=== PATIENT | male | born 1955 | race Caucasian/White ===

== ENCOUNTER 2019-12-23 13:52 | Inpatient (IN) | payer MEDICAID ==
[~2019-12-23] VITALS: Ht 172.7 cm; Wt 77.1 kg
[2019-12-23] MEDS ORDERED: PROVENTIL/2.5 MG/3 M (13:57)
[2019-12-23] MEDS ORDERED: LISINOPRIL20 MG PO (13:57)
[2019-12-23 14:18] LABS: BASOPHILS 0.3 % (0-2); EOSINOPHILS 4.2 % (0-7); HEMATOCRIT 43.1 % (42.0-54.0); IMMATURE GRANULOCYTES 0.1 % (0-5); MCH 31.7 pg (26.0-34.0); MCHC 32.5 g/dL (31.0-37.0); MCV 97.5 fL (80.0-100.0); MONOCYTES 10.1 % (2-11); NEUTROPHILS 51.3 % (40-80); PLATELET COUNT 206 10x3/uL (130-400); RBC 4.42 10x6/uL (4.20-6.10); RDW 12.1 % (11.5-14.5); WBC 7.9 10x3/uL (4.8-10.8)
[2019-12-23 14:31] LABS: CALC OSMOLALITY 283 mosm/kg (275-300); CALCIUM 8.8 mg/dL (8.5-10.1); CARBON DIOXIDE 35.6 mmol/L (21.0-32.0); CHLORIDE - SERUM 104 mmol/L (98-107); GLUCOSE 87 mg/dL (74-106); POTASSIUM - SERUM 3.6 mmol/L (3.5-5.1); SODIUM 142 mmol/L (136-145); UREA NITROGEN 18 mg/dL (7-18); eGFR NON AFRICAN AMERICAN 80 mL/min (90-120)
[2019-12-23 14:45] LABS: ALBUMIN 3.8 g/dL (3.4-5.0); ALKALINE PHOSPHATASE 85 U/L (30-120); ALT (SGPT) 40 U/L (10-68); BILIRUBIN - TOTAL 0.38 mg/dL (0.2-1.3); CKMB 1.5 U/L (0.0-3.6); CREATINE KINASE 93 UL (21-232); PRO BNP 317 pg/mL (0-125); PROTEIN - SERUM 7.7 g/dL (6.4-8.2)
[2019-12-23 14:59] LABS: TROPONIN-I < 0.017 ng/mL (0.000-0.060)
[2019-12-23 15:19] VITALS: BP 163/82
[2019-12-23 16:20] VITALS: BP 150/69
[2019-12-23 17:33] VITALS: BP 140/61
[2019-12-23 18:06] LABS: APTT 32.3 SECONDS (22.8-39.4); INR 0.95 (0.85-1.17); PROTIME 12.7 SECONDS (11.6-15.0)
[2019-12-23 18:07] LABS: D-DIMER-QUANTITATIVE < 0.27 ug/mLFEU (0.20-0.54)
[2019-12-23 18:21] VITALS: BP 145/68
[2019-12-23 20:00] VITALS: BP 142/81
[2019-12-23 21:05] VITALS: BP 142/81; BMI 25.9
[2019-12-23 21:42] LABS: C-REACTIVE PROTEIN 1.6 mg/dL (0.0-0.9)
[2019-12-24] VITALS: BP 143/77
[2019-12-24 04:00] VITALS: BP 130/73
[2019-12-24 04:44] LABS: BASOPHILS 0 % (0-2); EOSINOPHILS 0 % (0-7); HEMOGLOBIN 12.9 g/dL (13.5-17.5); LYMPHOCYTES 10.7 % (15-50); MCH 30.9 pg (26.0-34.0); MCHC 32.3 g/dL (31.0-37.0); MCV 95.9 fL (80.0-100.0); MEAN PLATELET VOLUME 9.1 fL (7.4-10.4); MONOCYTES 2.3 % (2-11); PLATELET COUNT 204 10x3/uL (130-400); RBC 4.17 10x6/uL (4.20-6.10); RDW 12.2 % (11.5-14.5)
[2019-12-24 04:53] LABS: WBC 5.2 10x3/uL (4.8-10.8)
[2019-12-24] MEDS ORDERED: PROAIR HFA8.5 G1 INH (05:04)
[2019-12-24] MEDS ORDERED: SPIRIVA18 MCG INH (05:04)
[2019-12-24 05:09] LABS: ALBUMIN 3.2 g/dL (3.4-5.0); ALKALINE PHOSPHATASE 73 U/L (30-120); ALT (SGPT) 33 U/L (10-68); BILIRUBIN - TOTAL 0.31 mg/dL (0.2-1.3); CALCIUM 8.3 mg/dL (8.5-10.1); CARBON DIOXIDE 30.1 mmol/L (21.0-32.0); CHLORIDE - SERUM 103 mmol/L (98-107); MAGNESIUM - SERUM 2.1 mg/dL (1.8-2.4); PROTEIN - SERUM 6.9 g/dL (6.4-8.2); SODIUM 138 mmol/L (136-145); UREA NITROGEN 17 mg/dL (7-18); eGFR NON AFRICAN AMERICAN 80 mL/min (90-120)
[2019-12-24 05:19] LABS: CALC OSMOLALITY 282 mosm/kg (275-300); GLUCOSE 180 mg/dL (74-106); POTASSIUM - SERUM 4.2 mmol/L (3.5-5.1)
[2019-12-24 08:55] VITALS: BP 141/78
[2019-12-24 12:01] VITALS: Ht 172.7 cm; Wt 77.1 kg
[2019-12-24 16:55] VITALS: BP 139/61
--- NOTE | 2019-12-24 18:20 | MORECARE ---
CASE MANAGEMENT DISCHARGE SUMMARY PATIENT: JENNIFER TREJO UNIT: [id number] ADM DATE: 12/23/19 AGE: 64 : 57 SEX: M ROOM/BED: D.2207 AUTHOR: ARELY HAMMOND PHYSICIAN: REFERRING PHYSICIAN: MILKA MANCILLA MD DATE OF SERVICE: 12/24/19 Discharge Plan Patient Name: JENNIFER TREJO [facility] [facility] 1955 Planned Disposition: Home Anticipated Discharge Date: Discharge Date: Expected LOS: Initial Reviewer: [email or web address] Initial Review Date: 12/23/2019 Generated: 12/24/19 7:19 pm DCPIA - Discharge Planning Initial Assessment Updated by [email or web address]: Kayli Barnes on 12/24/19 6:17 pm * Is the patient Alert and Oriented? Yes * How many steps to enter\exit or inside your home? * PCP NO PCP * [facility] * Preadmission Environment Home Alone * ADLs Independent * Equipment Nebulizer * List name and contact numbers for known caregivers / representatives who currently or will assist patient after discharge: MATHEW DEAN - [facility] - [phone] * Verbal permission to speak to the caregivers and representatives has been obtained from the patient. Yes * Community resources currently utilized None * Additional services required to return to the preadmission environment? No * Can the patient safely return to the preadmission environment? Yes * Has this patient been hospitalized within the prior 30 days at any hospital? No Patient Name: JENNIFER TREJO Page [id number] at 1820 All edits/amendments must be made on the electronic document DICTATION DATE: 12/24/191818 SANDBLASTER STONE: MARVIN 12/24/191818 RPT#: [id number] SD DATE: STATUS: ADM IN [facility] [address] [place] [address] END OF REPORT
--- NOTE | 2019-12-24 18:27 | MORECARE ---
CASE MANAGEMENT DISCHARGE SUMMARY PATIENT: JENNIFER TREJO UNIT: [id number] ADM DATE: 12/23/19 AGE: 64 : 57 SEX: M ROOM/BED: D.2207 AUTHOR: STEPHANY,DOC PHYSICIAN: REFERRING PHYSICIAN: MILKA MANCILLA MD DATE OF SERVICE: 12/24/19 Discharge Plan Patient Name: JENNIFER TREJO Facility[facility]:[place] : 1955 Planned Disposition: Home Anticipated Discharge Date: Discharge Date: Expected LOS: Initial Reviewer: [email or web address] Initial Review Date: 12/23/2019 Generated: 12/24/19 7:26 pm Comments DCP- Discharge Planning Updated by [id number]: Kayli Barnes on 12/24/19 5:[address] Patient Name: JENNIFER TREJO Admission Status: Elective Accout number: [id number] Admission Date: 12-23-2019 : 1955 Admission Diagnosis: Attending: VANIA Current LOS: 1 Anticipated DC Date: Planned Disposition: Home Primary Insurance: MEDICAID [place] Discharge Planning Comments: CM met with patient to complete initial dc planning assessment. CM educated patient on the CM role and verbal consent given by patient to complete assessment. Patient lives at home alone. At discharge patient plans to return home and feels this is a safe discharge. CM discussed availability of home health, rehab services, and medical equipment. Patient states he does have a nebulizer at home but no other medical equipment. Patient denied known discharge needs at this time. CM will continue to follow and will assist as needed with dc plans/needs. Food Service: Kayli Barnes DCPIA - Discharge Planning Initial Assessment Updated by [email or web address]: Kayli Barnes on 12/24/19 6:17 pm * Is the patient Alert and Oriented? Yes * How many steps to enter\exit or inside your home? * PCP NO PCP * [facility] * Preadmission Environment Home Alone * ADLs Independent * Equipment Nebulizer * List name and contact numbers for known caregivers / representatives who currently or will assist patient after discharge: MATHEW DEAN - [facility] - [phone] * Verbal permission to speak to the caregivers and representatives has been obtained from the patient. Yes * Community resources currently utilized None * Additional services required to return to the preadmission environment? No * Can the patient safely return to the preadmission environment? Yes * Has this patient been hospitalized within the prior 30 days at any hospital? No Last DP export: 12/24/19 5:20 p Patient Name: JENNIFER TREJO Page [id number] at 1827 All edits/amendments must be made on the electronic document DICTATION DATE: 12/24/191825 AVIONICS MECHANIC: MARVIN 12/24/191825 RPT#: [id number] DC DATE: STATUS: ADM IN [facility] [address] [place] [address] END OF REPORT
[2019-12-24 23:40] VITALS: BP 120/61
[2019-12-25 00:30] VITALS: BP 129/63
[2019-12-25 04:30] VITALS: BP 150/76
[2019-12-25 04:52] LABS: BASOPHILS 0.1 % (0-2); EOSINOPHILS 0.1 % (0-7); HEMATOCRIT 37.3 % (42.0-54.0); IMMATURE GRANULOCYTES 0.4 % (0-5); LYMPHOCYTES 4.5 % (15-50); MCH 31.4 pg (26.0-34.0); MCHC 32.2 g/dL (31.0-37.0); MCV 97.6 fL (80.0-100.0); MEAN PLATELET VOLUME 8.8 fL (7.4-10.4); MONOCYTES 4.3 % (2-11); NEUTROPHILS 90.6 % (40-80); PLATELET COUNT 209 10x3/uL (130-400); RBC 3.82 10x6/uL (4.20-6.10); RDW 12.2 % (11.5-14.5)
[2019-12-25 05:11] LABS: WBC 14.1 10x3/uL (4.8-10.8)
[2019-12-25 05:22] LABS: ANION GAP 6.5 mmol/L (8-16); CALCIUM 8.2 mg/dL (8.5-10.1); CARBON DIOXIDE 33.3 mmol/L (21.0-32.0); CREATININE - SERUM 1.1 mg/dL (0.6-1.3); MAGNESIUM - SERUM 2.1 mg/dL (1.8-2.4); POTASSIUM - SERUM 3.8 mmol/L (3.5-5.1)
[2019-12-25 08:00] VITALS: BP 159/71
[2019-12-25 12:57] VITALS: BP 143/74
--- NOTE | 2019-12-25 16:28 | MORECARE ---
CASE MANAGEMENT DISCHARGE SUMMARY PATIENT: JENNIFER TREJO UNIT: [id number] ADM DATE: 12/23/19 AGE: 64 : 57 SEX: M ROOM/BED: D.2207 AUTHOR: STEPHANY,DOC PHYSICIAN: REFERRING PHYSICIAN: MILKA MANCILLA MD DATE OF SERVICE: 12/25/19 Discharge Plan Patient Name: JENNIFER TREJO Facility: [facility]:[place] : 1955 Planned Disposition: Home Anticipated Discharge Date: Discharge Date: Expected LOS: Initial Reviewer: [email or web address] Initial Review Date: 12/23/2019 Generated: 12/25/19 5:28 pm Comments DCP- Discharge Planning Updated by [email or web address]: Kayli Barnes on 12/24/19 5:[address] Patient Name: JENNIFER TREJO Admission Status: Elective Accout number: [id number] Admission Date: 12-23-2019 : 1955 Admission Diagnosis: Attending: VANIA Current LOS: 1 Anticipated DC Date: Planned Disposition: Home Primary Insurance: MEDICAID [place] Discharge Planning Comments: CM met with patient to complete initial dc planning assessment. CM educated patient on the CM role and verbal consent given by patient to complete assessment. Patient lives at home alone. At discharge patient plans to return home and feels this is a safe discharge. CM discussed availability of home health, rehab services, and medical equipment. Patient states he does have a nebulizer at home but no other medical equipment. Patient denied known discharge needs at this time. CM will continue to follow and will assist as needed with dc plans/needs. Dishwasher Preparer: Kayli Barnes DCPIA - Discharge Planning Initial Assessment Updated by [email or web address]: Kayli Barnes on 12/24/19 6:17 pm * Is the patient Alert and Oriented? Yes * How many steps to enter\exit or inside your home? * PCP NO PCP * [facility] * Preadmission Environment Home Alone * ADLs Independent * Equipment Nebulizer * List name and contact numbers for known caregivers / representatives who currently or will assist patient after discharge: MATHEW DEAN - [facility] - [phone] * Verbal permission to speak to the caregivers and representatives has been obtained from the patient. Yes * Community resources currently utilized None * Additional services required to return to the preadmission environment? No * Can the patient safely return to the preadmission environment? Yes * Has this patient been hospitalized within the prior 30 days at any hospital? No External Providers External Provider: Marybeth Butler Contact Date: Service Request Date: Service Type: Resolution: Reviewer: Comments: Coverage Notice Reviewer: [email or web address] Kurt Barnes Notice Issued Date-Time: 12/25/2019 16:20 Notice Type: Patient Choice Letter Notice Delivered To: Patient Relationship to Patient: Self Assistant Teacher Primary Name: Delivery Method: HAND - Hand Delivered Alicia Days: Prior Verbal Notification: Recipient Understood Notice: Yes Recipient Signature: Yes Med Rec Note Co-signed by Attending: Coverage Notice Comment: ANY DME Last DP export: 12/24/19 5:27 p Patient Name: JENNIFER TREJO Page 13768 at 1628 All edits/amendments must be made on the electronic document DICTATION DATE: 12/25/191627 DAYCARE DIRECTOR: MARVIN 12/25/191627 RPT#: [id number] DC DATE: STATUS: ADM IN [facility] [address] [place] [address] END OF REPORT
[2019-12-25 17:10] VITALS: BP 140/52
--- NOTE | 2019-12-25 19:07 | MORECARE ---
CASE MANAGEMENT DISCHARGE SUMMARY PATIENT: JENNIFER TREJO UNIT: [id number] ADM DATE: 12/23/19 AGE: 64 : 57 SEX: M ROOM/BED: D.2207 AUTHOR: STEPHANY,DOC PHYSICIAN: REFERRING PHYSICIAN: MILKA MANCILLA MD DATE OF SERVICE: 12/25/19 Discharge Plan Patient Name: JENNIFER TREJO Facility: [facility]:[place] : 1955 Planned Disposition: Home Anticipated Discharge Date: Discharge Date: Expected LOS: Initial Reviewer: [email or web address] Initial Review Date: 12/23/2019 Generated: 12/25/19 8:07 pm Comments DCP- Discharge Planning Updated by [email or web address]: Kayli Barnes on 12/25/19 6:[address] CM received a notice to set up patient for BiPAP at home. Dr. Hummel later came by and cancelled stated patient refused to wear it at home. Patient does need home 02 walk test performed and HEIDE signed. CM faxed records to [facility] and CM explained that MD is planning for discharge in am. CM will continue to follow and assist as needed with discharge planning needs. DCP- Discharge Planning Updated by [email or web address]: Kayli Barnes on 12/24/19 5:[address] Patient Name: JENNIFER TREJO Admission Status: Elective Accout number: [id number] Admission Date: 12-23-2019 : 1955 Admission Diagnosis: Attending: VANIA Current LOS: 1 Anticipated DC Date: Planned Disposition: Home Primary Insurance: MEDICAID [place] Discharge Planning Comments: CM met with patient to complete initial dc planning assessment. CM educated patient on the CM role and verbal consent given by patient to complete assessment. Patient lives at home alone. At discharge patient plans to return home and feels this is a safe discharge. CM discussed availability of home health, rehab services, and medical equipment. Patient states he does have a nebulizer at home but no other medical equipment. Patient denied known discharge needs at this time. CM will continue to follow and will assist as needed with dc plans/needs. Clothing Patternmaker: Kayli Barnes DCPIA - Discharge Planning Initial Assessment Updated by [email or web address]: Kayli Barnes on 12/24/19 6:17 pm * Is the patient Alert and Oriented? Yes * How many steps to enter\exit or inside your home? * PCP NO PCP * [facility] * Preadmission Environment Home Alone * ADLs Independent * Equipment Nebulizer * List name and contact numbers for known caregivers / representatives who currently or will assist patient after discharge: MATHEW DEAN - [facility] - [phone] * Verbal permission to speak to the caregivers and representatives has been obtained from the patient. Yes * Community resources currently utilized None * Additional services required to return to the preadmission environment? No * Can the patient safely return to the preadmission environment? Yes * Has this patient been hospitalized within the prior 30 days at any hospital? No Coverage Notice Reviewer: [id number] - Kayli Barnes Notice Issued Date-Time: 12/25/2019 16:20 Notice Type: Patient Choice Letter Notice Delivered To: Patient Relationship to Patient: Self Strip Mine Supervisor Name: Delivery Method: HAND - Hand Delivered Alicia Days: Prior Verbal Notification: Recipient Understood Notice: Yes Recipient Signature: Yes Med Rec Note Co-signed by Attending: Coverage Notice Comment: ANY DME Last DP export: 12/25/19 3:28 pm Patient Name: JENNIFER TREJO Page [id number] at 1907 All edits/amendments must be made on the electronic document DICTATION DATE: 12/25/191906 GRINDER SET UP OPERATOR GEAR TOOL: MARVIN 12/25/191906 RPT#: [id number] DC DATE: STATUS: ADM IN [facility] [address] [place] [address] END OF REPORT
--- NOTE | 2019-12-25 19:32 | MORECARE ---
CASE MANAGEMENT DISCHARGE SUMMARY PATIENT: JENNIFER TREJO UNIT: [id number] ADM DATE: 12/23/19 AGE: 64 : 57 SEX: M ROOM/BED: D.2207 AUTHOR: STEPHANY,DOC PHYSICIAN: REFERRING PHYSICIAN: MILKA MANCILLA MD DATE OF SERVICE: 12/25/19 Discharge Plan Patient Name: JENNIFER TREJO Facility: [facility]:[place] : 1955 Planned Disposition: Home Anticipated Discharge Date: Discharge Date: Expected LOS: Initial Reviewer: [email or web address] Initial Review Date: 12/23/2019 Generated: 12/25/19 8:31 pm Comments DCP- Discharge Planning Updated by [email or web address]: Kayli Barnes on 12/25/19 6:[address] CM received a notice to set up patient for BiPAP at home. Dr. Hummel later came by and cancelled stated patient refused to wear it at home. Patient does need home 02 walk test performed and HEIDE signed. CM faxed records to [facility] and CM explained that MD is planning for discharge in am. CM will continue to follow and assist as needed with discharge planning needs. DCP- Discharge Planning Updated by [email or web address]: Kayli Barnes on 12/24/19 5:[address] Patient Name: JENNIFER TREJO Admission Status: Elective Accout number: [id number] Admission Date: 12-23-2019 : 1955 Admission Diagnosis: Attending: VANIA Current LOS: 1 Anticipated DC Date: Planned Disposition: Home Primary Insurance: MEDICAID [place] Discharge Planning Comments: CM met with patient to complete initial dc planning assessment. CM educated patient on the CM role and verbal consent given by patient to complete assessment. Patient lives at home alone. At discharge patient plans to return home and feels this is a safe discharge. CM discussed availability of home health, rehab services, and medical equipment. Patient states he does have a nebulizer at home but no other medical equipment. Patient denied known discharge needs at this time. CM will continue to follow and will assist as needed with dc plans/needs. Rn Women Services: Kayli Barnes DCPIA - Discharge Planning Initial Assessment Updated by [email or web address]: Kayli Barnes on 12/24/19 6:17 pm * Is the patient Alert and Oriented? Yes * How many steps to enter\exit or inside your home? * PCP NO PCP * [facility] * Preadmission Environment Home Alone * ADLs Independent * Equipment Nebulizer * List name and contact numbers for known caregivers / representatives who currently or will assist patient after discharge: MATHEW DEAN - [facility] - [phone] * Verbal permission to speak to the caregivers and representatives has been obtained from the patient. Yes * Community resources currently utilized None * Additional services required to return to the preadmission environment? No * Can the patient safely return to the preadmission environment? Yes * Has this patient been hospitalized within the prior 30 days at any hospital? No Coverage Notice Reviewer: [id number] - Kayli Barnes Notice Issued Date-Time: 12/25/2019 16:20 Notice Type: Patient Choice Letter Notice Delivered To: Patient Relationship to Patient: Self Infrastructure Tech Name: Delivery Method: HAND - Hand Delivered Alicia Days: Prior Verbal Notification: Recipient Understood Notice: Yes Recipient Signature: Yes Med Rec Note Co-signed by Attending: Coverage Notice Comment: ANY DME Last DP export: 12/25/19 6:07 pm Patient Name: JENNIFER TREJO Page 24478 at 1932 All edits/amendments must be made on the electronic document DICTATION DATE: 12/25/191930 TRUST CLERK: MARVIN 12/25/191930 RPT#: [id number] DC DATE: STATUS: ADM IN [facility] [address] [place] [address] END OF REPORT
[2019-12-25 20:00] VITALS: BP 143/71
[2019-12-26 05:36] LABS: BASOPHILS 0 % (0-2); EOSINOPHILS 0 % (0-7); HEMOGLOBIN 11.6 g/dL (13.5-17.5); IMMATURE GRANULOCYTES 0.4 % (0-5); LYMPHOCYTES 6.2 % (15-50); MCH 30.8 pg (26.0-34.0); MCHC 31.4 g/dL (31.0-37.0); MCV 98.1 fL (80.0-100.0); MEAN PLATELET VOLUME 9.2 fL (7.4-10.4); MONOCYTES 4.8 % (2-11); NEUTROPHILS 88.6 % (40-80); PLATELET COUNT 201 10x3/uL (130-400); RBC 3.77 10x6/uL (4.20-6.10); RDW 12.5 % (11.5-14.5); WBC 11.6 10x3/uL (4.8-10.8)
[2019-12-26 05:53] LABS: ANION GAP 7.2 mmol/L (8-16); CALCIUM 8.2 mg/dL (8.5-10.1); CARBON DIOXIDE 34.1 mmol/L (21.0-32.0); CREATININE - SERUM 1.2 mg/dL (0.6-1.3); MAGNESIUM - SERUM 2.2 mg/dL (1.8-2.4); POTASSIUM - SERUM 3.3 mmol/L (3.5-5.1)
[2019-12-26 08:31] VITALS: BP 154/55
[2019-12-26] MEDS ORDERED: Nicoderm [PBKC] TRANSDERM (10:25)
[2019-12-26] MEDS ORDERED: ZITHROMAX250 MG PO (10:25)
[2019-12-26] MEDS ORDERED: OMNICEF300 MG PO (10:25)
[2019-12-26] MEDS ORDERED: FLORAJEN3 CAPS460 MG PO (10:26)
[2019-12-26] MEDS ORDERED: DALIRESP250 MCG PO (10:26)
[2019-12-26] MEDS ORDERED: PREDNISONE10 MG PO (10:26)
[2019-12-26] MEDS ORDERED: ALBUTEROL2.5 MG/3 M INH (11:56)
[2019-12-26] MEDS ORDERED: PROAIR HFA8.5 G1 INH (11:56)
[2019-12-26] MEDS ORDERED: ATROVENT 0.02%2.5 ML UPD (11:56)
--- NOTE | 2019-12-26 13:42 | MORECARE ---
CASE MANAGEMENT DISCHARGE SUMMARY PATIENT: JENNIFER TREJO UNIT: [id number] ADM DATE: 12/23/19 AGE: 64 : 57 SEX: M ROOM/BED: D.2207 AUTHOR: STEPHANY,DOC PHYSICIAN: REFERRING PHYSICIAN: MILKA MANCILLA MD DATE OF SERVICE: 12/26/19 Discharge Plan Patient Name: JENNIFER TREJO Facility: [facility]:[place] : 1955 Planned Disposition: Home Anticipated Discharge Date: Discharge Date: 12/26/2019 Expected LOS: Initial Reviewer: [email or web address] Initial Review Date: 12/23/2019 Generated: 12/26/19 2:42 pm Comments DCP- Discharge Planning Updated by [email or web address]: Kayli Barnes on 12/26/19 12:[address] [facility] DELIVERED 02 TO PATIENTS ROOM AND WILL DELIVER TO HOME SOON PATIENT IS DISCHARGED. PATIENT DENIES ANY DISCHARGE NEEDS. CM WILL CONTINUE TO FOLLOW AND ASSIST NEEDED WITH DISCHARGE PLANNING NEEDS DCP- Discharge Planning Updated by [email or web address]: Kayli Barnes on 12/25/19 6:[address] CM received a notice to set up patient for BiPAP at home. Dr. Hummel later came by and cancelled stated patient refused to wear it at home. Patient does need home 02 walk test performed and HEIDE signed. CM faxed records to [place] [facility] and CM explained that MD is planning for discharge in am. CM will continue to follow and assist as needed with discharge planning needs. DCP- Discharge Planning Updated by [email or web address]: Kayli Barnes on 12/24/19 5:[address] Patient Name: JENNIFER TREJO Admission Status: Elective Accout number: [id number] Admission Date: 12-23-2019 : 1955 Admission Diagnosis: Attending: VANIA Current LOS: 1 Anticipated DC Date: Planned Disposition: Home Primary Insurance: MEDICAID [place] Discharge Planning Comments: CM met with patient to complete initial dc planning assessment. CM educated patient on the CM role and verbal consent given by patient to complete assessment. Patient lives at home alone. At discharge patient plans to return home and feels this is a safe discharge. CM discussed availability of home health, rehab services, and medical equipment. Patient states he does have a nebulizer at home but no other medical equipment. Patient denied known discharge needs at this time. CM will continue to follow and will assist as needed with dc plans/needs. Draft Roller Picker: Kayli Barnes DCPIA - Discharge Planning Initial Assessment Updated by [email or web address]: Kayli Barnes on 12/24/19 6:17 pm * Is the patient Alert and Oriented? Yes * How many steps to enter\exit or inside your home? * PCP NO PCP * [facility] * Preadmission Environment Home Alone * ADLs Independent * Equipment Nebulizer * List name and contact numbers for known caregivers / representatives who currently or will assist patient after discharge: MATHEW DEAN - DAUGHTER - [phone] * Verbal permission to speak to the caregivers and representatives has been obtained from the patient. Yes * Community resources currently utilized None * Additional services required to return to the preadmission environment? No * Can the patient safely return to the preadmission environment? Yes * Has this patient been hospitalized within the prior 30 days at any hospital? No Coverage Notice Reviewer: [id number] - Kayli Barnes Notice Issued Date-Time: 12/25/2019 16:20 Notice Type: Patient Choice Letter Notice Delivered To: Patient Relationship to Patient: Self Stiff Straw Hat Washer Name: Delivery Method: HAND - Hand Delivered Alicia Days: Prior Verbal Notification: Recipient Understood Notice: Yes Recipient Signature: Yes Med Rec Note Co-signed by Attending: Coverage Notice Comment: ANY DME Last DP export: 12/25/19 6:32 pm Patient Name: JENNIFER TREJO Page [id number] at 1342 All edits/amendments must be made on the electronic document DICTATION DATE: 12/26/19 1342 WAITER/WAITRESS: MARVIN 12/26/19 1342 RPT#: [id number] DC DATE:12/26/19 STATUS: DIS IN [facility] [address] [place] [address] END OF REPORT
[2019-12-27 16:08] LABS: IMMUNOGLOBULIN E 1019 IU/mL (6-495)
== END 2019-12-26 12:59 | disposition home or self-care (01) | DRG 189 ==
LOC: D.ER 13:52 → D.MS 17:15
PROVIDERS: Family Medicine; Internal Medicine Pulmonary Disease; ADMIT Family Medicine; ATTEND Family Medicine
DX: J96.21 Acute and chronic respiratory failure with hypoxia (principal); J44.1 Chronic obstructive pulmonary disease with (acute) exacerbation; F17.203 Nicotine dependence unspecified, with withdrawal; K21.9 Gastro-esophageal reflux disease without esophagitis; J96.22 Acute and chronic respiratory failure with hypercapnia; I10 Essential (primary) hypertension; J20.9 Acute bronchitis, unspecified; M54.9 Dorsalgia, unspecified

== ENCOUNTER 2020-01-06 01:32 | Emergency (ER) | payer MEDICAID ==
[~2020-01-06] VITALS: Ht 172.7 cm; Wt 72.7 kg
[~2020-01-06 01:32] MED LIST: ALBUTEROL2.5 MG/3 M INH; ATROVENT 0.02%2.5 ML UPD; DALIRESP250 MCG PO; FLORAJEN3 CAPS460 MG PO; LISINOPRIL20 MG PO; Nicoderm [PBKC] TRANSDERM; OMNICEF300 MG PO; PREDNISONE10 MG PO; PROAIR HFA8.5 G1 INH; PROVENTIL/2.5 MG/3 M; SPIRIVA18 MCG INH; ZITHROMAX250 MG PO
[2020-01-06 01:42] VITALS: Ht 172.7 cm; Wt 72.7 kg
[2020-01-06 02:33] LABS: BASOPHILS 0.1 % (0-2); EOSINOPHILS 0.1 % (0-7); HEMATOCRIT 39.4 % (42.0-54.0); HEMOGLOBIN 12.7 g/dL (13.5-17.5); IMMATURE GRANULOCYTES 0.2 % (0-5); LYMPHOCYTES 8.9 % (15-50); MCH 31.5 pg (26.0-34.0); MCHC 32.2 g/dL (31.0-37.0); MCV 97.8 fL (80.0-100.0); MEAN PLATELET VOLUME 9.1 fL (7.4-10.4); MONOCYTES 5.8 % (2-11); NEUTROPHILS 84.9 % (40-80); RBC 4.03 10x6/uL (4.20-6.10); RDW 12.4 % (11.5-14.5); WBC 12.5 10x3/uL (4.8-10.8)
[2020-01-06 02:39] LABS: PLATELET COUNT 249 10x3/uL (130-400)
[2020-01-06 02:41] LABS: CALC OSMOLALITY 282 mosm/kg (275-300); CARBON DIOXIDE 32.3 mmol/L (21.0-32.0); CHLORIDE - SERUM 103 mmol/L (98-107); GLUCOSE 141 mg/dL (74-106); POTASSIUM - SERUM 4.9 mmol/L (3.5-5.1); SODIUM 140 mmol/L (136-145); UREA NITROGEN 17 mg/dL (7-18); eGFR NON AFRICAN AMERICAN 80 mL/min (90-120)
[2020-01-06 02:57] LABS: ALBUMIN 3.1 g/dL (3.4-5.0); ALKALINE PHOSPHATASE 72 U/L (30-120); ALT (SGPT) 26 U/L (10-68); BILIRUBIN - TOTAL 0.17 mg/dL (0.2-1.3); CKMB 1.2 U/L (0.0-3.6); CREATINE KINASE 29 UL (21-232); PRO BNP 368 pg/mL (0-125); PROTEIN - SERUM 6.9 g/dL (6.4-8.2)
[2020-01-06 03:03] LABS: TROPONIN-I < 0.017 ng/mL (0.000-0.060)
[2020-01-06] MEDS ORDERED: LEVAQUIN750 MG PO (04:43)
[2020-01-06 04:57] VITALS: BP 118/71
== END 2020-01-06 05:15 | disposition home or self-care (01) ==
LOC: D.ER 01:32
PROVIDERS: Emergency Medicine
DX: R06.00 Dyspnea, unspecified (principal); J44.9 Chronic obstructive pulmonary disease, unspecified; I10 Essential (primary) hypertension; Z72.0 Tobacco use; R07.9 Chest pain, unspecified; M54.9 Dorsalgia, unspecified

== ENCOUNTER 2020-03-06 00:48 | Emergency (ER) | payer MEDICAID ==
[~2020-03-06] VITALS: Ht 172.7 cm; Wt 75.0 kg
[~2020-03-06 00:48] MED LIST changes: +LEVAQUIN750 MG PO
[2020-03-06 00:54] VITALS: Ht 172.7 cm; Wt 75.0 kg
[2020-03-06] MEDS ORDERED: TRELEGY ELLIPT1 EACH INH (00:59)
[2020-03-06 01:09] LABS: BASOPHILS 0.2 % (0-2); EOSINOPHILS 3.9 % (0-7); HEMATOCRIT 39.3 % (42.0-54.0); HEMOGLOBIN 12.5 g/dL (13.5-17.5); IMMATURE GRANULOCYTES 0.1 % (0-5); LYMPHOCYTES 24.9 % (15-50); MCH 31.5 pg (26.0-34.0); MCHC 31.8 g/dL (31.0-37.0); MEAN PLATELET VOLUME 8.8 fL (7.4-10.4); MONOCYTES 12.3 % (2-11); NEUTROPHILS 58.6 % (40-80); PLATELET COUNT 211 10x3/uL (130-400); RBC 3.97 10x6/uL (4.20-6.10); RDW 12.8 % (11.5-14.5); WBC 8.2 10x3/uL (4.8-10.8)
[2020-03-06 01:17] LABS: CALC OSMOLALITY 277 mosm/kg (275-300); CALCIUM 8.8 mg/dL (8.5-10.1); CHLORIDE - SERUM 103 mmol/L (98-107); GLUCOSE 108 mg/dL (74-106); POTASSIUM - SERUM 4.5 mmol/L (3.5-5.1); SODIUM 140 mmol/L (136-145); UREA NITROGEN 8 mg/dL (7-18); eGFR NON AFRICAN AMERICAN 80 mL/min (90-120)
[2020-03-06 01:24] LABS: INR 0.87 (0.85-1.17); PROTIME 11.8 SECONDS (11.6-15.0)
[2020-03-06 01:25] LABS: D-DIMER-QUANTITATIVE < 0.27 ug/mLFEU (0.20-0.54)
[2020-03-06 01:33] LABS: ALBUMIN 3.6 g/dL (3.4-5.0); ALKALINE PHOSPHATASE 72 U/L (30-120); ALT (SGPT) 19 U/L (10-68); BILIRUBIN - TOTAL 0.22 mg/dL (0.2-1.3); CREATINE KINASE 162 UL (21-232); PRO BNP 741 pg/mL (0-125); PROTEIN - SERUM 7.7 g/dL (6.4-8.2)
[2020-03-06 01:34] LABS: TROPONIN-I < 0.017 ng/mL (0.000-0.060)
[2020-03-06] MEDS ORDERED: STERAPRED DS 1010 MG PO (02:58)
[2020-03-06 03:00] VITALS: BP 176/78
== END 2020-03-06 03:00 | disposition home or self-care (01) ==
LOC: D.ER 00:48
PROVIDERS: Family Medicine
DX: J44.1 Chronic obstructive pulmonary disease with (acute) exacerbation (principal); I10 Essential (primary) hypertension; Z72.0 Tobacco use; R06.02 Shortness of breath

== ENCOUNTER 2020-03-12 00:45 | Inpatient (IN) | payer MEDICAID ==
[~2020-03-12] VITALS: Ht 172.7 cm; Wt 72.7 kg
--- NOTE | ~2020-03-12 | HEMODYNAMI ---
PATIENT:JENNIFER TREJO MEDICAL RECORD: [id number] : 57 LOCATION:[facility].2114 ADMISSION DATE: 03/12/20 Generatedon:03/14/202010:22 Patient name: JENNIFER TREJO Patient #: [id number] SSN: : 1955 Date of study: 03/14/2020 Page: Of Hemodynamic Procedure Report Patient Data Patient Demographics Procedure consent was obtained First Name: JENNIFER Gender: Male Last Name: NEIL : 1955 Patient #: [id number] Age: 64 year(s) Race: Unknown Additional ID: [id number] Contact details [address]: [address] [place] [address] State: [place] City: [place] Zip code: [address] Past Medical History Allergies Allergen Reaction Date Comments Reported Other allergy 03/14/2020 AMITRIPTYLINE Admission Admission Data Admission Date: 03/12/2020 Admission Time: 1:44 Room #: D.2114 Height (in.): 67.72 BSA: 1.86 (m2) Height (cm.): 172 BMI: 24.68 (kg/m2) Weight (lbs.): 160.94 Weight (kg.): 73 Lab Results Lab Result Date: 03/14/2020 Lab Result Time: 0:00 Biochemistry Name Units Result Min Max BUN mg/dl 26 --(----)-* 7 18 Creatinine mg/dl 0.9 --(-*--)-- 0.6 1.3 eGFR ml/min 90 --(*---)-- 90 120 NONAFRICAN CBC Name Units Result Min Max Hematocrit % 37.5 *-(----)-- 42 54 Hemoglobin g/dl 11.9 *-(----)-- 13.5 17.5 Procedure Procedure Types Cath Procedure Diagnostic Procedure LHC LHC w/Coronaries Procedure Description Procedure Date Procedure Date: 03/14/2020 Procedure Start Time: 10:06 Procedure End Time: 10:17 Procedure Staff Name Function Parris Mcdaniel MD Performing Physician Ana Edmonds RN Nurse Paula Kiser RT Scrub [facility] RT Monitor Angle Barr RT Monitor Procedure Data Cath Procedure Fluoroscopy Diagnostic fluoroscopy Total fluoroscopy Time: 1.6 time: 1.6 min min Diagnostic fluoroscopy Total fluoroscopy dose: 295 dose: 295 mGy mGy Contrast Material Contrast Material Type Amount (ml) Isovue 300 27 Entry Location Entry Primary Successful Side Size Upsize Upsize Entry Closure Howard ccessful Closure Location (Fr) 1 (Fr) 2 (Fr) Remarks Device Remarks Radial Right 6 Fr Mechanical artery Short Compression Estimated blood loss: 5 ml Diagnostic catheters Device Type Used For End Catheter Placement DIAGNOSTIC [place] 110cm 5 Procedure Fr catheter ([id number]) Procedure Complications No complications Procedure Medications Medication Administration Route Dosage 0.9% NaCl I.V. 100 ml/hr Oxygen etCO2 Nasal cannula 2 l/min Lidocaine 2% added to field 20 Heparin Flush Bag added to field 2 bags (1000units/500ml NS) Radial Cocktail added to field 1 syringe (Verapamil 2mg/Nitro 400mcg/Heparin 1500units) Plavix P.O. 300 mg Versed I.V. 1 mg Fentanyl I.V. 50 mcg Versed I.V. 1 mg Fentanyl I.V. 50 mcg Hemodynamics Rest BSA: 1.86 (m2) O2 Consumption: Estimated: 220.94 (ml/min) O2 Consumption indexed : Estimated:118.78 (ml/min/m) Heart Rate: 75 (bpm) Pressure Samples Time Site Value (mmHg) Purpose Heart Use Rate(bpm) 10:12 LV 150/-6,16 Snapshot 75 Gradients Valve Time Site Site Mean SEP/DFP Peak To Heart Use 1 2 (mmHg) (sec/min) Peak Rate (mmHg) (bpm) Aortic 10:13 LV AO 76 Snapshots Pre Cath Intra NCS Post Cath Vital Signs Time Heart Resp SPO2 etCO2 NIBP (mmHg) Rhythm Pain Sedation Rate (ipm) (%) (mmHg) Status Level (bpm) 9:57:47 77 15 98 35.2 183/98(159) NSR 0 (11) 10(A) , No pain 10:02:12 73 19 96 33.7 174/101(144) NSR 0 (11) 10(A) , No pain 10:06:30 73 19 96 42 163/96(135) NSR 0 (11) 10(A) , No pain 10:10:44 80 13 97 33 147/83(111) NSR 0 (11) 10(A) , No pain 10:15:00 78 20 96 33 150/80(117) NSR 0 (11) 10(A) , No pain Medications Time Medication Route Dose Verified Delivered Reason Notes Effectiveness by by 9:56:10 0.9% NaCl I.V. 100 Norred Ana used for ml/hr Jonas Edmonds pai gow dealer 9:56:17 Oxygen etCO2 2 l/min Norred Ana used for Nasal Jonas Edmonds procedure cannula RN 9:56:24 Lidocaine 2% added 20ml Norred Norred for local to vial Jonas Mcdaniel MD anesthetic field 9:56:28 Heparin Flush added 2 bags Norred Norred used for Bag to Jonas Mcdaniel MD procedure (1000units/500ml field NS) 9:56:33 Radial Cocktail added 1 Norred Norred used for (Verapamil to syringe Jonas Mcdaniel MD procedure 2mg/Nitro field 400mcg/Heparin 1500units) 9:59:31 Plavix P.O. 300 mg Norred Ana for Jonas Edmonds antiplatelet RN therapy 10:06:31 Versed I.V. 1 mg Norred Ana for sedation Jonas Edmonds RN 10:06:38 Fentanyl I.V. 50 mcg Norred Ana for sedation Jonas Edmonds RN 10:10:06 Versed I.V. 1 mg Norred Ana for sedation Jonas Edmonds RN 10:10:09 Fentanyl I.V. 50 mcg Norred Ana for sedation Jonas Edmonds revolving inventory clerk Log Time Note 9:18:59 Informed consent obtained and on chart 9:20:18 Patient Weight : 160.94 lbs 9:20:21 Patient Height : 67.72 inches 9:38:34 H&P Date Dictated: 03/13/2020 Within 30 days and on chart., H&P Addendum completed by physician on day of procedure. (MUST COMPLETE FOR ALL OUTPATIENTS). 9:38:37 Procedure Status Urgent Heart Cath (IP). 9:38:38 Time tracking: Call back (After hours or weekends) 9:38:47 Plan of Care:Hemodynamics will remain stable., Cardiac rhythm will remain stable., Comfort level will be maintained., Respiratory function will remain adequate., Patient/ family verbilizes understanding of procedure., Procedure tolerated without complication., Recovers from procedure without complications.. 9:40:13 Paula Rashel RT(R) sent for patient. Start room use. 9:48:22 Patient allergic to Other allergyAMITRIPTYLINE 9:48:58 Lab Result : BUN 26 mg/dl 9:48:58 Lab Result : eGFR NONAFRICAN 90 ml/min 9:48:58 Lab Result : Creatinine 0.9 mg/dl 9:48:58 Lab Result : Hemoglobin 11.9 g/dl 9:48:58 Lab Result : Hematocrit 37.5 % 9:50:36 Risk of Mortality: .1 9:50:40 Risk of blood transfusion: 1.9 9:50:43 Risk of BRODIE: 1.2 9:50:52 Patient received from Med II to CCL 1 Alert and oriented. Tansferred to table in Supine position. 9:50:53 Warm blankets applied, and aramis hugger turned on for patient comfort. 9:50:54 Correct patient and procedure confirmed by team. 9:50:56 ECG and BP/O2 sat monitors applied to patient. 9:56:10 0.9% NaCl 100 ml/hr I.V. was administered by Ana Edmonds RN; used for procedure; Verbal order read back and verified. 9:56:17 Oxygen 2 l/min etCO2 Nasal cannula was administered by Ana Edmonds RN; used for procedure; Verbal order read back and verified. 9:56:24 Lidocaine 2% 20ml vial added to field was administered by Parris Mcdaniel MD; for local anesthetic; Verbal order read back and verified. 9:56:28 Heparin Flush Bag (1000units/500ml NS) 2 bags added to field was administered by Parris Mcdaniel MD; used for procedure; Verbal order read back and verified. 9:56:28 Vital chart was started 9:56:33 Radial Cocktail (Verapamil 2mg/Nitro 400mcg/Heparin 1500units) 1 syringe added to field was administered by Parris Mcdaniel MD; used for procedure; Verbal order read back and verified. 9:56:33 Rhythm: sinus rhythm 9:56:34 Full Disclosure recording started 9:56:35 Pre-procedure instructions explained to patient. 9:56:35 Pre-op teaching completed and patient verbalized understanding. 9:56:56 Family unavailable. 9:56:57 Patient NPO since Midnight. 9:57:03 Is the patient allergic to Iodine/contrast media? No. 9:57:10 Patient diabetic? No. 9:57:16 Previous problem with sedation/anesthesia? No ? 9:57:17 Snore? Yes 9:57:18 Sleep apnea? Yes 9:57:19 Deviated septum? No 9:57:20 Opens mouth fully? Yes 9:57:21 Sticks out tongue? Yes 9:57:24 Airway obstruction? Yes COPD 9:57:26 Dentures? No ? 9:57:29 Modified Tyree's test Ulnar < 7 seconds 9:57:31 Patient pain scale 0/10 ?. 9:57:41 Lab results completed and on chart. 9:57:48 Stress Test: yes; abnormal INFERIOR 9:59:31 Plavix 300 mg P.O. was administered by Ana Edmonds RN; for antiplatelet therapy; Verbal order read back and verified. 9:59:38 Right Radial & Right Groin area was prepped with chlora-prep and draped in sterile fashion 9:59:39 Alarms reviewed by R. N. 9:59:39 Sharps counted by scrub and verified by R.N. 9:59:46 Use device set Radial Dx or PCI 9:59:48 ACIST Syringe (08986) opened to sterile field. 9:59:49 Bag Decanter () opened to sterile field. 9:59:49 ACIST Hand Control (45262) opened to sterile field. 9:59:50 ACIST Manifold (27534) opened to sterile field. 9:59:51 Tegaderm 4 x 4 (1626W) opened to sterile field. 9:59:52 Medline Cath Pack ([id number]) opened to sterile field. 9:59:52 MBrace Wrist Support ([id number]) opened to sterile field. 9:59:54 EMERALD Guide Wire (081-699) opened to sterile field. 9:59:55 SHEATH 6FR RAIN (3882040) opened to sterile field. 10:04:17 --------ALL STOP TIME OUT------ 10:04:18 Final Timeout: patient, procedure, and site verified with staff and physician. All members of the team are in agreement. 10:04:20 Right Radial & Right Groin site verified by team. 10:04:22 Fire Safety Assessment: A--An alcohol-based skin anteseptic being used preoperatively. 10:04:34 Physical assessment completed. ASA score P 3 - A patient with severe systemic disease as per Parris Mcdaniel MD. 10:04:36 1) 90+ Normal kidney functon but urine findings or structural abnormalities or genetic trait point to kidney disease. 10:04:38 Maximum allowable contrast dose (3.7 X eGFR X 0.75)250 ml. 10:04:41 Sedation plan: IV Moderate Sedation Medication:Versed, Fentanyl 10:06:09 Procedure started. 10:06:25 Local anesthetic to right radial artery with Lidocaine 2% by Parris Mcdaniel MD.INITIAL ACCESS ONLY 10:06:31 Versed 1 mg I.V. was administered by Ana Edmonds RN; for sedation; Verbal order read back and verified. 10:06:38 Fentanyl 50 mcg I.V. was administered by Ana Edmonds RN; for sedation; Verbal order read back and verified. 10:08:34 A 6 Fr Short sheath was inserted into the Right Radial artery 10:09:17 A DIAGNOSTIC [place] 110cm 5 Fr catheter ([id number]) was advanced over the wire and used for Procedure. 10:10:06 Versed 1 mg I.V. was administered by Ana Edmonds RN; for sedation; Verbal order read back and verified. 10:10:09 Fentanyl 50 mcg I.V. was administered by Ana Edmonds RN; for sedation; Verbal order read back and verified. 10:12:40 LV gram done using HERNANDEZ 10:12:43 Injector settings: Ml/sec: 12, Volume: 8, 10:12:58 LV hemodynamics recorded. 10:13:07 EF : 60 % 10:13:40 RCA angiography performed. 10:14:26 LCA angiography performed. 10:14:52 Catheter removed. 10:15:17 Procedure ended.(Physican Out) 10:15:26 ZEPHYR REGULAR TR BAND (557732) opened to sterile field. 10:15:34 Sheath removed intact; hemostasis achieved with Mechanical Compression to the Right Radial artery. 10:15:45 Fluoroscopy time 01.60 minutes. 10:15:50 Fluoroscopy dose: 295 mGy 10:15:50 Flurop Dose total: 295 10:16:02 Dose Area Product 24180 mGy/cm. 10:16:06 Contrast amount:Isovue 300 27ml. 10:16:08 Maximum allowable dose exceeded? No. 10:16:09 Sharps counted by scrub and verified by R.N. 10:16:15 Post-procedure physical assessment completed. ASA score P 3 - A patient with severe systemic disease as per Parris Mcdaniel MD. 10:16:18 [place] band inflated with 10cc of air. 10:16:23 Post procedure rhythm: sinus rhythm 10:16:25 Estimated blood loss: 5 ml 10:16:37 Post procedure instruction explained to patient.Patient verbalizes understanding. 10:16:37 Patient needs reinforcement of post procedure teaching. 10:17:08 Procedure and supply charges have been captured, reviewed, submitted and are correct. 10:17:11 Procedure Complication : No complications 10:17:14 Vital chart was stopped 10:17:15 [facility] Findings: mild to moderate CAD (<70%) 10:17:16 Operative report dictated upon procedure completion. 10:17:17 See physician's report for complete and final results. 10:17:20 Report given to Med II. 10:17:28 Patient transfered to Med II with Bed. 10:17:32 Procedure ended. 10:17:32 Full Disclosure recording stopped 10:17:37 End room use (Document Last) 10:19:17 End room use (Document Last) Device Usage Item Name Manufacture Quantity Catalog Hospital Part Current Minima l Lot# / Number Charge Number Stock Stock Serial# Code ACIST Acist 1 72096 102242 140537 322487 20 Syringe Medical (36304) Systems Inc Bag Microtek 1 2001S 043458 25089 497032 5 Decanter Medical Inc. () ACIST Hand Acist 1 40510 693336 672832 540285 5 Control Medical (09217) Systems Inc ACIST Acist 1 60915 823206 099697 637283 5 Manifold Medical (74353) Systems Inc Tegaderm 4 3M 1 1626W 750888 038022 893282 5 x 4 (1626W) Medline Medline 1 [id number] 931958 22651 673607 5 Cath Pack ([id number]) MBrace Advanced 1 140-0250-00 460633 99859 128467 5 Wrist Vascular Support Dynamics ([id number]) EMERALD Cardinal 1 502-624 173668 739044 855610 5 Guide Wire Health (937-289) SHEATH 6FR Cardinal 1 0370889 756292 0305049 512352 5 [facility] Health (6858332) DIAGNOSTIC Terumo 1 40-0649 061017 726159 280743 5 [place] 110cm 5 Fr catheter (848695) ZEPHYR Cardinal 1 354886 092448 3257670 916104 5 REGULAR TR Health BAND (410465) Signature Audit Busby Stage Time Signature Unsigned Intra-Procedure 03/14/2020 Altagracia Pablo 10:19:17 AM RT(R) Intra-Procedure 03/14/2020 Parris Mcdaniel MD 10:22:13 AM [facility] [address] [place] [address]
[~2020-03-12 00:45] MED LIST changes: +STERAPRED DS 1010 MG PO; +TRELEGY ELLIPT1 EACH INH
[2020-03-12 01:19] LABS: BASOPHILS 0.2 % (0-2); EOSINOPHILS 0.7 % (0-7); HEMATOCRIT 43.7 % (42.0-54.0); IMMATURE GRANULOCYTES 1.8 % (0-5); LYMPHOCYTES 13.2 % (15-50); MCH 31.1 pg (26.0-34.0); MCV 97.1 fL (80.0-100.0); MONOCYTES 8.6 % (2-11); NEUTROPHILS 75.5 % (40-80); RDW 12.7 % (11.5-14.5); WBC 15.4 10x3/uL (4.8-10.8)
[2020-03-12 01:26] LABS: PLATELET COUNT 274 10x3/uL (130-400)
[2020-03-12 01:33] LABS: ANION GAP 4.8 mmol/L (8-16); CARBON DIOXIDE 37.5 mmol/L (21.0-32.0); CREATININE - SERUM 1.5 mg/dL (0.6-1.3); POTASSIUM - SERUM 4.3 mmol/L (3.5-5.1)
[2020-03-12 01:37] LABS: APTT 20.9 SECONDS (22.8-39.4); INR 0.93 (0.85-1.17); PROTIME 12.5 SECONDS (11.6-15.0)
[2020-03-12 01:54] LABS: ALBUMIN 3.3 g/dL (3.4-5.0); BILIRUBIN - TOTAL 0.28 mg/dL (0.2-1.3); PROTEIN - SERUM 6.8 g/dL (6.4-8.2)
[2020-03-12 01:56] LABS: TROPONIN-I 0.147 ng/mL (0.000-0.060)
[2020-03-12 02:10] VITALS: BP 124/66
--- NOTE | 2020-03-12 02:10 | NUR ---
FIRST SL NITRO GIVEN, PT C/O 8/10 CHEST PAIN MID CHEST.
[2020-03-12 02:15] VITALS: BP 126/63
--- NOTE | 2020-03-12 02:16 | NUR ---
PT C/O 5/10 MID CHEST PAIN AFTER FIRST SL NITRO.
--- NOTE | 2020-03-12 02:16 | NUR ---
PT C/O 5/10 MID CHEST PAIN AFTER 2ND SL NITRO.
[2020-03-12 02:21] VITALS: BP 133/62
--- NOTE | 2020-03-12 02:21 | NUR ---
PT C/O MID CHEST PAIN OF 2/10. THIRD SL NITRO GIVEN.
[2020-03-12 02:31] LABS: BILIRUBIN NEGATIVE (NEGATIVE); GLUCOSE NEGATIVE (NEGATIVE); KETONE NEGATIVE (NEGATIVE); NITRITE NEGATIVE (NEGATIVE); UROBILINOGEN NORMAL (NORMAL)
[2020-03-12 02:39] LABS: UDS - AMPHET NEGATIVE QUAL (NEGATIVE); UDS - BARB NEGATIVE QUAL (NEGATIVE); UDS - BENZO NEGATIVE QUAL (NEGATIVE); UDS - COCAINE NEGATIVE QUAL (NEGATIVE); UDS - OPIATE NEGATIVE QUAL (NEGATIVE); UDS - PCP NEGATIVE QUAL (NEGATIVE); UDS - THC POSITIVE QUAL (NEGATIVE)
[2020-03-12] MEDS ORDERED: LIPITOR40 MG PO (03:30)
[2020-03-12] MEDS ORDERED: PLAVIX75 MG PO (03:31)
[2020-03-12] MEDS ORDERED: TRAZODONE HCL150 MG PO (03:34)
[2020-03-12 03:36] VITALS: BMI 24.3
--- NOTE | 2020-03-12 05:07 | NUR ---
DR. PERRY HERE TO SEE PATIENT. REPEAT EKG ORDERED AND COMPLETED.
[2020-03-12 12:42] VITALS: Ht 172.7 cm; Wt 72.7 kg
--- NOTE | 2020-03-12 13:10 | NUR ---
LEAVING FOR STRESS TEST BY W/C.
--- NOTE | 2020-03-12 19:00 | NUR ---
RECEIVED BEDSIDE REPORT. PATIETN IS ALERT AND ORIENTATED. PATIENT IS RESTING COMFORTABLY IN BED. CALL LIGHT IS WITH IN REACH.
[2020-03-12 20:00] VITALS: BP 141/67
[2020-03-13] VITALS: BP 139/78
--- NOTE | 2020-03-13 01:48 | NUR ---
IV IN LAC WAS OUT. STARTED NEW IV, 20 GAUGE IN THE LEFT WRIST.
[2020-03-13 04:00] VITALS: BP 160/89
--- NOTE | 2020-03-13 05:11 | NUR ---
PATIENT IS NOW SLEEPING. HE HAS BEEN NPO SINCE MIDNIGHT, FOR A STRESS TEST IN THE AM. HE RECEIVED MORPHINE TWICE ON 12 SHIFT FOR CHEST PAIN.
[2020-03-13 05:16] LABS: BASOPHILS 0 % (0-2); EOSINOPHILS 0 % (0-7); HEMOGLOBIN 11.2 g/dL (13.5-17.5); LYMPHOCYTES 5.9 % (15-50); MCH 31.2 pg (26.0-34.0); MCHC 32.1 g/dL (31.0-37.0); MCV 97.2 fL (80.0-100.0); MEAN PLATELET VOLUME 9.1 fL (7.4-10.4); MONOCYTES 5.7 % (2-11); NEUTROPHILS 86.4 % (40-80); PLATELET COUNT 220 10x3/uL (130-400); RDW 12.8 % (11.5-14.5); WBC 16.1 10x3/uL (4.8-10.8)
[2020-03-13 05:22] LABS: HEMATOCRIT 34.9 % (42.0-54.0); RBC 3.59 10x6/uL (4.20-6.10)
[2020-03-13 05:53] LABS: ANION GAP 5.5 mmol/L (8-16); CALCIUM 7.9 mg/dL (8.5-10.1); CARBON DIOXIDE 33.6 mmol/L (21.0-32.0); CREATININE - SERUM 1.2 mg/dL (0.6-1.3); MAGNESIUM - SERUM 2.3 mg/dL (1.8-2.4); POTASSIUM - SERUM 4.1 mmol/L (3.5-5.1)
--- NOTE | 2020-03-13 07:00 | NUR ---
BEDSIDE REPORT RECEIVED. SHIFT ASSESSMENT COMPLETED PER FLOWSHEET, SEE FLOWSHEET FOR INFORMATION. PT IN BED RESTING WATCHING TV. NO ACUTE NEEDS OR DISTRESS NOTED AT THIS TIME. VSS. WILL CONT TO MONITOR.
[2020-03-13 08:00] VITALS: BP 149/85
--- NOTE | 2020-03-13 10:33 | NUR ---
PATIENT REFUSED TX. HE WAS EATING AFTER BEING NPO. STATED HE DIDN'T FEEL LIKE HE NEEDED TX AT THIS TIME
--- NOTE | 2020-03-13 19:34 | NUR ---
RECEIVED BEDSIDE REPORT. PATIENT IS ALERT AND ORIENTED. RESTIG COMFORTABLY IN BED. RESPIRATIONS ARE EVEN AND UNLABORED. NO S/S OF DISTRESS. NO C/O PAIN. CALL LIGHT WITHIN REACH. WILL CPOC.
[2020-03-13 20:30] VITALS: BP 192/79
[2020-03-14 04:30] VITALS: BP 201/96
[2020-03-14 05:15] LABS: BASOPHILS 0.2 % (0-2); EOSINOPHILS 0.1 % (0-7); HEMATOCRIT 37.5 % (42.0-54.0); HEMOGLOBIN 11.9 g/dL (13.5-17.5); IMMATURE GRANULOCYTES 5.3 % (0-5); LYMPHOCYTES 8.3 % (15-50); MCH 31.1 pg (26.0-34.0); MCHC 31.7 g/dL (31.0-37.0); MCV 97.9 fL (80.0-100.0); MEAN PLATELET VOLUME 9.1 fL (7.4-10.4); MONOCYTES 6.8 % (2-11); NEUTROPHILS 79.3 % (40-80); PLATELET COUNT 233 10x3/uL (130-400); RBC 3.83 10x6/uL (4.20-6.10); RDW 13.1 % (11.5-14.5); WBC 16.9 10x3/uL (4.8-10.8)
[2020-03-14 05:30] LABS: CALC OSMOLALITY 280 mosm/kg (275-300); CALCIUM 7.9 mg/dL (8.5-10.1); CARBON DIOXIDE 30.6 mmol/L (21.0-32.0); CHLORIDE - SERUM 103 mmol/L (98-107); CREATININE - SERUM 0.9 mg/dL (0.6-1.3); GLUCOSE 133 mg/dL (74-106); MAGNESIUM - SERUM 2.3 mg/dL (1.8-2.4); SODIUM 137 mmol/L (136-145); UREA NITROGEN 26 mg/dL (7-18); eGFR NON AFRICAN AMERICAN > 90 mL/min (90-120)
--- NOTE | 2020-03-14 07:15 | NUR ---
RECEIVED PT IN BED EYES CLOSED RESP UNLABORED SKIN W/D COLOR WNL NAD NOTED
[2020-03-14 15:21] VITALS: BP 164/80
[2020-03-14] MEDS ORDERED: NORVASC2.5 MG PO (15:39)
[2020-03-14] MEDS ORDERED: PREDNISONE10 MG PO (15:59)
[2020-03-14] MEDS ORDERED: LEVOFLOXACIN500 MG PO (15:59)
--- NOTE | 2020-03-14 16:45 | NUR ---
REVIEWED DISCHARGE INSTRUCTIONS WITH PT STATES UNDERSTANDING COPY GIVEN DCD SALINE LOCK TO LFA WITH IV CATHETER INTACT SITE FREE OF REDNESS OR EDEMA PT DISCHARGED HOME IN STABLE CONDITION WITH ALL PERSONAL BELONGINGS LEFT UNIT VIA W/C
--- NOTE | 2020-03-15 21:22 | MORECARE ---
CASE MANAGEMENT DISCHARGE SUMMARY PATIENT: JENNIFER TREJO UNIT: [id number] ADM DATE: 03/12/20 AGE: 64 : 57 SEX: M ROOM/BED: D.2114 AUTHOR: STEPHANY,DOC PHYSICIAN: REFERRING PHYSICIAN: MILKA MANCILLA MD DATE OF SERVICE: 03/15/20 Discharge Plan Patient Name: JENNIFER TREJO Facility: [facility]:[place] : 1955 Planned Disposition: Home Anticipated Discharge Date: Discharge Date: 03/14/2020 Expected LOS: Initial Reviewer: [email or web address] Initial Review Date: 03/14/2020 Generated: 03/15/20 10:22 pm Comments DCP- Discharge Planning Updated by [email or web address]: Kayli Barnes on 03/15/20 8:[address] LATE ENTRY 03/14/20 Patient Name: JENNIFER TREJO Admission Status: ER Accout number: [id number] Admission Date: 03-12-2020 : 1955 Admission Diagnosis:CHRONIC OBSTRUCTIVE PULMONARY DISEASE W (ACUTE) EXACERB Attending: VANIA Current LOS: 2 Anticipated DC Date: Planned Disposition: Home Primary Insurance: MEDICAID [place] Discharge Planning Comments: CM met with patient to complete initial dc planning assessment. CM educated patient on the CM role and verbal consent given by patient to complete assessment. Patient lives at home with family. Patient is independent. At discharge patient plans to return home and feels this is a safe discharge. CM discussed availability of home health, rehab services, and medical equipment. Patient will have family to transport home. Patient denied known discharge needs at this time. CM will continue to follow and will assist as needed with dc plans/needs. Servicer Coin Machines: Kayli Barnes DCPIA - Discharge Planning Initial Assessment Updated by [email or web address]: Kayli Barnes on 03/15/20 9:18 pm * Is the patient Alert and Oriented? Yes * How many steps to enter\exit or inside your home? * PCP RICARDO BLANCA * Pharm[facility] * Preadmission Environment Home Alone * ADLs Independent * Equipment Nebulizer * Other Equipment HOME / PORTABLE [address] [place] [address] * List name and contact numbers for known caregivers / representatives who currently or will assist patient after discharge: MATHEW DEAN - DAUGHTER- [phone] * Verbal permission to speak to the caregivers and representatives has been obtained from the patient. Yes * Community resources currently utilized None * Additional services required to return to the preadmission environment? No * Can the patient safely return to the preadmission environment? Yes * Has this patient been hospitalized within the prior 30 days at any hospital? No Patient Name: JENNIFER TREJO Page 51876 at 212 All edits/amendments must be made on the electronic document DICTATION DATE: 03/15/202121 GAS PUMPER: MARVIN 03/15/202121 RPT#: [id number] DC DATE:03/14/20 STATUS: DIS IN [facility] [address] [place] [address] END OF REPORT
== END 2020-03-14 16:45 | disposition home or self-care (01) | DRG 280 ==
LOC: D.ER 00:45 → D.M2 01:44 → D.MS 01:44 → D.M2 03:18
PROVIDERS: Emergency Medicine; Family Medicine; Internal Medicine Cardiovascular Disease; ADMIT Family Medicine; ATTEND Family Medicine
PROC: B2151ZZ Fluoroscopy of Left Heart using Low Osmolar Contrast (ICD-10-PCS; 2020-03-14)
PROC: 4A023N7 Measurement of Cardiac Sampling and Pressure, Left Heart, Percutaneous Approach (ICD-10-PCS; 2020-03-14)
PROC: B2111ZZ Fluoroscopy of Multiple Coronary Arteries using Low Osmolar Contrast (ICD-10-PCS; principal; 2020-03-14 09:40)
DX: I21.4 Non-ST elevation (NSTEMI) myocardial infarction (principal); J96.21 Acute and chronic respiratory failure with hypoxia; J96.22 Acute and chronic respiratory failure with hypercapnia; J44.1 Chronic obstructive pulmonary disease with (acute) exacerbation; N17.9 Acute kidney failure, unspecified; F17.203 Nicotine dependence unspecified, with withdrawal; E78.5 Hyperlipidemia, unspecified; I10 Essential (primary) hypertension; G89.29 Other chronic pain; M54.9 Dorsalgia, unspecified; F12.90 Cannabis use, unspecified, uncomplicated

== ENCOUNTER 2020-03-18 16:24 | Inpatient (IN) | payer MEDICAID ==
[~2020-03-18] VITALS: Ht 172.7 cm; Wt 79.1 kg
[~2020-03-18 16:24] MED LIST changes: +LEVOFLOXACIN500 MG PO; +LIPITOR40 MG PO; +NORVASC2.5 MG PO; +PLAVIX75 MG PO; +TRAZODONE HCL150 MG PO
[2020-03-18 17:08] LABS: HEMATOCRIT 41.9 % (42.0-54.0); HEMOGLOBIN 13.1 g/dL (13.5-17.5); MCHC 31.3 g/dL (31.0-37.0); MCV 99.1 fL (80.0-100.0); MEAN PLATELET VOLUME 8.6 fL (7.4-10.4); PLATELET COUNT 217 10x3/uL (130-400); RBC 4.23 10x6/uL (4.20-6.10); RDW 13.2 % (11.5-14.5); WBC 22.9 10x3/uL (4.8-10.8)
[2020-03-18 17:16] LABS: APTT 23.5 SECONDS (22.8-39.4); INR 0.93 (0.85-1.17); PROTIME 12.4 SECONDS (11.6-15.0)
[2020-03-18 17:19] LABS: CALC OSMOLALITY 276 mosm/kg (275-300); CALCIUM 8.7 mg/dL (8.5-10.1); CARBON DIOXIDE 37.2 mmol/L (21.0-32.0); CHLORIDE - SERUM 101 mmol/L (98-107); CREATININE - SERUM 1.3 mg/dL (0.6-1.3); GLUCOSE 89 mg/dL (74-106); POTASSIUM - SERUM 4.4 mmol/L (3.5-5.1); SODIUM 139 mmol/L (136-145); UREA NITROGEN 13 mg/dL (7-18); eGFR NON AFRICAN AMERICAN 59 mL/min (90-120)
[2020-03-18 17:36] LABS: ALBUMIN 3.7 g/dL (3.4-5.0); ALKALINE PHOSPHATASE 68 U/L (30-120); ALT (SGPT) 43 U/L (10-68); CKMB 2.5 U/L (0.0-3.6); CREATINE KINASE 82 UL (21-232); PRO BNP 1836 pg/mL (0-125); PROTEIN - SERUM 7.3 g/dL (6.4-8.2)
[2020-03-18 18:32] LABS: EOSINOPHILS 2 % (0-7); LYMPHOCYTES 9 % (15-50); MONOCYTES 1 % (2-11); NEUTROPHILS 88 % (40-80); PLATELET ESTIMATE NORMAL
--- NOTE | 2020-03-18 20:49 | NUR ---
ZITHROMAX INFUSION COMPLETE AT THIS TIME.
[2020-03-19] VITALS (7 sets, daily range): BP systolic 101–158; BP diastolic 51–96; Ht 172.7 cm; Wt 79.1 kg
[2020-03-19 02:49] LABS: % SATURATION 19 % (15-55); IRON 56 ug/dl (35-150); TOTAL IRON BIND CAPACITY 282 ug/dl (260-445); UNSAT IRON BIND CAPACITY 226 ug/dl (150-375)
--- NOTE | 2020-03-19 07:10 | NUR ---
REPORT RECEIVED FROM KARATE TEACHER AND PATIENT CARE ASSUMED. PATIENT LAYING IN BED ON BACK AWAKE, ALERT AND OREINTED X 4. PATIENT IS STABLE AND VSS. PATIENT DENIES ANY NEED OR PAIN. WILL CONTINUE WITH PLAN OF CARE. SR UPX 2 BED IN LOW POSITION AND CALL LIGHT IN REACH.
[2020-03-19 07:21] LABS: CALC OSMOLALITY 279 mosm/kg (275-300); CALCIUM 7.7 mg/dL (8.5-10.1); CARBON DIOXIDE 31.7 mmol/L (21.0-32.0); CHLORIDE - SERUM 104 mmol/L (98-107); MAGNESIUM - SERUM 2.1 mg/dL (1.8-2.4); SODIUM 137 mmol/L (136-145); UREA NITROGEN 15 mg/dL (7-18); eGFR NON AFRICAN AMERICAN 80 mL/min (90-120)
[2020-03-19 07:23] LABS: GLUCOSE 184 mg/dL (74-106)
[2020-03-19 07:27] LABS: BASOPHILS 0.1 % (0-2); EOSINOPHILS 0.2 % (0-7); HEMATOCRIT 34.3 % (42.0-54.0); HEMOGLOBIN 10.6 g/dL (13.5-17.5); IMMATURE GRANULOCYTES 0.9 % (0-5); LYMPHOCYTES 5.2 % (15-50); MCH 30.5 pg (26.0-34.0); MCHC 30.9 g/dL (31.0-37.0); MCV 98.8 fL (80.0-100.0); MEAN PLATELET VOLUME 8.9 fL (7.4-10.4); MONOCYTES 1.2 % (2-11); NEUTROPHILS 92.4 % (40-80); PLATELET COUNT 175 10x3/uL (130-400); RBC 3.47 10x6/uL (4.20-6.10); RDW 13.3 % (11.5-14.5)
[2020-03-19 07:28] LABS: WBC 10.3 10x3/uL (4.8-10.8)
--- NOTE | 2020-03-19 15:15 | NUR ---
PATIENT AMBULATING IN [place]ALLW[place]. TOLERATING WELL. WILL CONTINUE TO MONITOR. SR UP X 2 BED IN LOW POSITION AND CALL LIGHT IN REACH.
--- NOTE | 2020-03-19 19:33 | NUR ---
REPORT RECEIVED AND ROUNDING COMPLETE. PATIENT LAYING IN BED TALKING ON THE PHONE, WEARING NASAL CANNULA WITH O2 AT 2L. NO DISTRESS NOTED. RIGHT WRIST WITH FLUIDS RUNNING WITH ABX. PIV SHOWS NO S/SX OF INFILTRATION. NO SOB NOTED. PATIENT ASKED FOR ORANGE SERBERT, GIVEN. NO OTHER NEEDS AT THIS TIME. CALL LIGHT WITHIN REACH AND BED IN LOWEST LOCKED POSITION.
[2020-03-20] VITALS: BP 151/66
[2020-03-20 04:00] VITALS: BP 142/80
[2020-03-20 06:27] LABS: BASOPHILS 0.1 % (0-2); EOSINOPHILS 0.1 % (0-7); HEMATOCRIT 34.6 % (42.0-54.0); HEMOGLOBIN 10.6 g/dL (13.5-17.5); IMMATURE GRANULOCYTES 0.5 % (0-5); LYMPHOCYTES 6.9 % (15-50); MCH 30.4 pg (26.0-34.0); MCHC 30.6 g/dL (31.0-37.0); MCV 99.1 fL (80.0-100.0); MEAN PLATELET VOLUME 9.1 fL (7.4-10.4); MONOCYTES 5.3 % (2-11); NEUTROPHILS 87.1 % (40-80); PLATELET COUNT 162 10x3/uL (130-400); RBC 3.49 10x6/uL (4.20-6.10); RDW 13.2 % (11.5-14.5)
[2020-03-20 06:28] LABS: WBC 13.1 10x3/uL (4.8-10.8)
[2020-03-20 06:39] LABS: CARBON DIOXIDE 28.9 mmol/L (21.0-32.0); CHLORIDE - SERUM 105 mmol/L (98-107); GLUCOSE 142 mg/dL (74-106); MAGNESIUM - SERUM 2.1 mg/dL (1.8-2.4); SODIUM 139 mmol/L (136-145); eGFR NON AFRICAN AMERICAN 80 mL/min (90-120)
[2020-03-20 06:40] LABS: CALC OSMOLALITY 282 mosm/kg (275-300); POTASSIUM - SERUM 3.9 mmol/L (3.5-5.1); UREA NITROGEN 20 mg/dL (7-18)
--- NOTE | 2020-03-20 07:10 | NUR ---
REPORT RECEIVED FROM DIGITAL DESIGN ENGINEER AND PATIENT CARE ASSUMED. PATIENT LAYING IN BED ON BACK WITH EYES CLOSED AND BREATHING EVENLY. WILL CONTINUE WITH PLAN OF CARE. SR UP X 2 BED IN LOW POSITION AND CALL LIGHT IN REACH.
[2020-03-20 09:50] VITALS: BP 161/82
--- NOTE | 2020-03-20 13:10 | NUR ---
PATIENT SITTING UP IN BED WATCHING TV. PATIENT IS STABLE AND VSS. PATIENT DENIES ANY NEEDS OR PAIN. WILL CONTINUE TO MONITOR. SR UP X 2 BED IN LOW POSITION AND CALL LIGHT IN REACH.
[2020-03-20 13:41] VITALS: BP 168/91
[2020-03-20 19:40] LABS: BILIRUBIN NEGATIVE (NEGATIVE); GLUCOSE 100 mg/dL (NEGATIVE); KETONE NEGATIVE (NEGATIVE); NITRITE NEGATIVE (NEGATIVE); SPECIFIC GRAVITY 1.015 (1.005-1.020); UROBILINOGEN NORMAL (NORMAL)
--- NOTE | 2020-03-20 19:44 | MORECARE ---
CASE MANAGEMENT DISCHARGE SUMMARY PATIENT: JENNIFER TREJO UNIT: [id number] ADM DATE: 03/18/20 AGE: 64 : 57 SEX: M ROOM/BED: D.3 AUTHOR: ARELY HAMMOND PHYSICIAN: REFERRING PHYSICIAN: VITOR AGGARWAL DO DATE OF SERVICE: 03/20/20 Discharge Plan Patient Name: JENNIFER TREJO [facility] : 1955 Planned Disposition: Anticipated Discharge Date: Discharge Date: Expected LOS: Initial Reviewer: [email or web address] Initial Review Date: 03/18/2020 Generated: 03/20/20 8:43 pm Patient Name: JENNIFER TREJO Page [id number] at 1944 All edits/amendments must be made on the electronic document DICTATION DATE: 03/20/201942 [facility] CONSULTANT: MARVIN 03/20/201942 RPT#: [id number] DC DATE: STATUS: ADM IN [facility] [address] [place] [address] END OF REPORT
--- NOTE | 2020-03-20 20:36 | MORECARE ---
CASE MANAGEMENT DISCHARGE SUMMARY PATIENT: JENNIFER TREJO UNIT: [id number] ADM DATE: 03/18/20 AGE: 64 : 57 SEX: M ROOM/BED: D.9040 AUTHOR: STEPHANYDOC PHYSICIAN: REFERRING PHYSICIAN: VITOR AGGARWAL DO DATE OF SERVICE: 03/20/20 Discharge Plan Patient Name: JENNIFER TREJO [facility] [facility] 1955 Planned Disposition: Anticipated Discharge Date: Discharge Date: Expected LOS: Initial Reviewer: [email or web address] Initial Review Date: 03/18/2020 Generated: 03/20/20 9:35 pm Comments DCP- Discharge Planning Updated by [email or web address]: Kierra Parrish on 03/20/20 7:[address] Patient Name: JENNIFER TREJO Admission Status: ER Accout number: [id number] Admission Date: 03-18-2020 : 1955 Admission Diagnosis:CHRONIC OBSTRUCTIVE PULMONARY DISEASE W (ACUTE) EXACERB Attending: VITOR AGGARWAL Current LOS: 2 Anticipated DC Date: Planned Disposition: Primary Insurance: MEDICAID [place] Discharge Planning Comments: CM met with patient to complete initial dc planning assessment. CM educated patient on the CM role and verbal consent given by patient to complete assessment. CM verified patient's address, phone number, and emergency contact phone numbers. Patient lives at home and is independent. At discharge patient plans to return home and feels this is a safe discharge. Cm met with patient to discuss frequent admissions, and what can be done to assist patient with his disease process. Patient states he is unable to obtain his medications because lack of spots with his RICHARD, and he is unsure of what to take. CM provided alternatives as to which medications to put on RICHARD, and provided pt with [facility] 4 dollar list, and a good RX card. CM will assist patient into obtaining more RICHARD spots if available. Pt states he could use help at home with his medication management. HEIDE signed for Keeley . Patient denies other known discharge needs at this time. Transportation provider at discharge will be himself. CM will continue to follow and will assist as needed with dc plans/needs. Bilingual Teacher Aide: Kierra Parrish MSN,RN,CM Last DP export: 03/20/20 6:44 p Patient Name: JENNIFER TREJO Page [phone] at 2035 All edits/amendments must be made on the electronic document DICTATION DATE: 03/20/202034 UTILITIES GROUND WORKER: MARVIN 03/20/202034 RPT#: [id number] DC DATE: STATUS: ADM IN [facility] [address] [place] [address] END OF REPORT
--- NOTE | 2020-03-20 20:42 | MORECARE ---
CASE MANAGEMENT DISCHARGE SUMMARY PATIENT: JENNIFER TREJO UNIT: [id number] ADM DATE: 03/18/20 AGE: 64 : 57 SEX: M ROOM/BED: D.8604 AUTHOR: STEPHANYDOC PHYSICIAN: REFERRING PHYSICIAN: VITOR AGGARWAL DO DATE OF SERVICE: 03/20/20 Discharge Plan Patient Name: JENNIFER TREJO [facility] [facility] 1955 Planned Disposition: Anticipated Discharge Date: Discharge Date: Expected LOS: Initial Reviewer: [email or web address] Initial Review Date: 03/18/2020 Generated: 03/20/20 9:42 pm Comments DCP- Discharge Planning Updated by [email or web address]: Kierra Parrish on 03/20/20 7:[address] Patient Name: JENNIFER TREJO Admission Status: ER Accout number: [id number] Admission Date: 03-18-2020 : 1955 Admission Diagnosis:CHRONIC OBSTRUCTIVE PULMONARY DISEASE W (ACUTE) EXACERB Attending: VITOR AGGARWAL Current LOS: 2 Anticipated DC Date: Planned Disposition: Primary Insurance: MEDICAID [place] Discharge Planning Comments: CM met with patient to complete initial dc planning assessment. CM educated patient on the CM role and verbal consent given by patient to complete assessment. CM verified patient's address, phone number, and emergency contact phone numbers. Patient lives at home and is independent. At discharge patient plans to return home and feels this is a safe discharge. Cm met with patient to discuss frequent admissions, and what can be done to assist patient with his disease process. Patient states he is unable to obtain his medications because lack of spots with his RICHARD, and he is unsure of what to take. CM provided alternatives as to which medications to put on RICHARD, and provided pt with [facility] 4 dollar list, and a good RX card. CM will assist patient into obtaining more RICHARD spots if available. Pt states he could use help at home with his medication management. [facility] signed for [facility]. Patient denies other known discharge needs at this time. Transportation provider at discharge will be himself. CM will continue to follow and will assist as needed with dc plans/needs. Animal Shelter Manager: Kierra Parrish MSN,RN,CM DCPIA - Discharge Planning Initial Assessment Updated by [id number]: Kierra Parrish on 03/20/20 8:38 pm * Is the patient Alert and Oriented? Yes * How many steps to enter\exit or inside your home? 0/0 * PCP Trisha Robbins * [facility] * Preadmission Environment Home Alone * ADLs Independent * Equipment Nebulizer Oxygen * List name and contact numbers for known caregivers / representatives who currently or will assist patient after discharge: Daughter Angela Knowles [phone] * Verbal permission to speak to the caregivers and representatives has been obtained from the patient. Yes * Community resources currently utilized Other * Please name any agencies selected above. [facility] * Additional services required to return to the preadmission environment? Yes * Can the patient safely return to the preadmission environment? No * Has this patient been hospitalized within the prior 30 days at any hospital? Yes Last DP export: 03/20/20 7:36 p Patient Name: JENNIFER TREJO Page [id number] at 204 All edits/amendments must be made on the electronic document DICTATION DATE: 03/20/202041 TRUST VAULT CUSTODIAN: MARVIN 03/20/202041 RPT#: [id number] DC DATE: STATUS: ADM IN [facility] [address] [place] [address] END OF REPORT
[2020-03-20 21:10] VITALS: BP 155/73
--- NOTE | 2020-03-20 23:35 | NUR ---
INITIAL ROUNDS COMPLETED AT 1910 HRS. PT SITTING UP IN THE RECLINER. NO DISTRESS NOTED. PM MEDS GIVEN PER ORDERS. PT IN SHOWER AT 0 HRS. OUT OF SHOWER AT 2149 HRS. MORPHNE 4MG SIVP GOVEN FOR C/O CP AT 2150 HRS. BED LINENS CHANGED. ASSESSMENT COMPLETED AT 2154 HRS. VSS. O2 3LNC. ALERT AND ORIENTED TO PERSON, PLACE AND TIME. ARROYO. LUNGS DIMINISHED IN BASES BILAT. IV INFILTRATED AT 0 HRS. DC'D WITH CATHETER INTACT. NEW IV STARTED AT 2320 HRS #20 TO RFA WITH ATEMPT X1. PT TOLERATED ACTIVITY WELL. PT CURRENTLY WATCHING TV. NO DISTRESS NOTED. CALL LIGHT WITHIN REACH.
[2020-03-21 00:13] VITALS: BP 129/70
--- NOTE | 2020-03-21 01:36 | NUR ---
MORPHINE 4MG SIVP GIVEN FOR C/O CP 03/04. CALL LIGHT WITHIN REACH.
--- NOTE | 2020-03-21 04:42 | NUR ---
PT RESTING WITH EYES CLOSED. RESP EVEN AND REGULAR. CALL LIGHT WITHIN REACH.
[2020-03-21 04:54] VITALS: BP 152/75
[2020-03-21 05:30] LABS: BASOPHILS 0 % (0-2); EOSINOPHILS 0 % (0-7); HEMATOCRIT 34.7 % (42.0-54.0); HEMOGLOBIN 10.5 g/dL (13.5-17.5); IMMATURE GRANULOCYTES 0.6 % (0-5); LYMPHOCYTES 4.6 % (15-50); MCH 30.6 pg (26.0-34.0); MCHC 30.3 g/dL (31.0-37.0); MONOCYTES 3.6 % (2-11); NEUTROPHILS 91.2 % (40-80); PLATELET COUNT 158 10x3/uL (130-400); RBC 3.43 10x6/uL (4.20-6.10); RDW 13.6 % (11.5-14.5); WBC 11.2 10x3/uL (4.8-10.8)
--- NOTE | 2020-03-21 05:36 | NUR ---
VSS THROUGHOUT NIGHT. PT STATES IV MORPHINE CONTROLS HIS CHRONIC CP. NEEDS MET; WILL CONTINUE TO MONITOR.
[2020-03-21 05:40] LABS: MCV 101.2 fL (80.0-100.0)
[2020-03-21 05:57] LABS: CALC OSMOLALITY 282 mosm/kg (275-300); CALCIUM 8.2 mg/dL (8.5-10.1); CARBON DIOXIDE 31.1 mmol/L (21.0-32.0); CHLORIDE - SERUM 104 mmol/L (98-107); GLUCOSE 177 mg/dL (74-106); MAGNESIUM - SERUM 2.2 mg/dL (1.8-2.4); POTASSIUM - SERUM 4.4 mmol/L (3.5-5.1); SODIUM 138 mmol/L (136-145); UREA NITROGEN 20 mg/dL (7-18); eGFR NON AFRICAN AMERICAN 80 mL/min (90-120)
--- NOTE | 2020-03-21 07:55 | NUR ---
ADE MURRAY HUNG AT THIS TIME TO INFUSE TO RT FA. PT UP TO SIDE OF BED, DENIES ANY NEEDS AT THIS TIME. CALL LIGHT IN REACH, NAD NOTED, WILL CONTINUE TO MONITOR.
[2020-03-21 08:56] VITALS: BP 176/86
--- NOTE | 2020-03-21 10:00 | NUR ---
AM MEDS GIVEN AT THIS TIME. ALSO GAVE 4MG OF MORPHINE FOR PAIN LEVEL OF 7/10. PT UP TO SIDE OF BED, DENIES ANY OTHER NEEDS AT THIS TIME. CALL LIGHT IN REACH, NAD NOTED, WILL CONTINUE TO MONITOR.
[2020-03-21 13:12] VITALS: BP 175/64
--- NOTE | 2020-03-21 14:06 | NUR ---
RT FA IV INFILTRATED, D/C IV WITH CATHETER TIP INTACT. NEW 2OG IV STARTED TO RT FA. ALSO GAVE 4MG OF MORPHINE FOR PAIN LEVEL FO 04/03. PT DENIES ANY OTHER NEEDS AT THIS TIME. CALL LIGHT IN REACH, NAD NOTED,W ILL CONTINUE TO MONITOR.
--- NOTE | 2020-03-21 18:01 | NUR ---
EXPLAINED TO PT FOR THE NEED OF SPUTUM CULTURE, PROVIDED PT WITH SPUTUM COLLECTION CUP.
--- NOTE | 2020-03-21 18:27 | NUR ---
4MG OF MORPHINE GIVEN FOR PAIN LEVEL OF 7/10. ALSO HUNG IVPB DOXY. PT DENIES ANY OTHER NEEDS AT THIS TIME. CALL LIGHT IN REACH, NAD NOTED,W ILL CONTINUE OT MONITOR.
[2020-03-21 18:31] VITALS: BP 152/50
--- NOTE | 2020-03-21 19:41 | NUR ---
INITIAL ROUNDS COMPLETED. PT DENIED ANY DISCOMFORT. CALL LIGHT WITHIN REACH.
[2020-03-21 20:00] VITALS: BP 159/77
--- NOTE | 2020-03-21 23:16 | NUR ---
INITIAL ROUNDS COMPLETED AT 1915 HRS. NO DISTRESS NOTED. ASSESSMENT COMPLETED AT 1950 HRS. VSS. ALERT AND ORIENTED TO PERSON, PLACE AND TIME. ARROYO. O2 2LNC. LUNGS DIMINISHED IN BASES BILAT. IV TO RFA WITH IVAB INFUSING. PM MEDS GIVEN PER ORDERS. MORPHINE 4MG SIVP GIVEN AT 2300 HRS FOR C/O CP 03/04. PT CURRENTLY SITTING IN RECLINER WATCHING TV. CALL LIGHT WITHIN REACH.
[2020-03-22] VITALS: BP 152/75
--- NOTE | 2020-03-22 00:52 | NUR ---
PT RESTING WITH EYES CLOSED. RESP EVEN AND REGULAR. CALL LIGHT WITHIN REACH.
--- NOTE | 2020-03-22 05:00 | NUR ---
PT STATES CP NOW 3/10 AFTER MORPHINE ADMINISTRATION. CALL LIGHT WITHIN REACH.
[2020-03-22 06:26] LABS: BASOPHILS 0 % (0-2); EOSINOPHILS 0 % (0-7); HEMATOCRIT 34.4 % (42.0-54.0); HEMOGLOBIN 10.4 g/dL (13.5-17.5); IMMATURE GRANULOCYTES 0.6 % (0-5); LYMPHOCYTES 6.1 % (15-50); MCH 30.2 pg (26.0-34.0); MCHC 30.2 g/dL (31.0-37.0); MEAN PLATELET VOLUME 9.3 fL (7.4-10.4); MONOCYTES 5.2 % (2-11); NEUTROPHILS 88.1 % (40-80); PLATELET COUNT 159 10x3/uL (130-400); RBC 3.44 10x6/uL (4.20-6.10); RDW 13.4 % (11.5-14.5); WBC 9.7 10x3/uL (4.8-10.8)
[2020-03-22 06:34] LABS: CALC OSMOLALITY 285 mosm/kg (275-300); CALCIUM 8.4 mg/dL (8.5-10.1); CHLORIDE - SERUM 104 mmol/L (98-107); GLUCOSE 164 mg/dL (74-106); MAGNESIUM - SERUM 2.1 mg/dL (1.8-2.4); POTASSIUM - SERUM 4.5 mmol/L (3.5-5.1); SODIUM 140 mmol/L (136-145); UREA NITROGEN 22 mg/dL (7-18); eGFR NON AFRICAN AMERICAN 80 mL/min (90-120)
--- NOTE | 2020-03-22 06:37 | NUR ---
PT STATED MORPHINE CONTROLLED HIS CHRONIC CHEST PAIN. RESTED WELL DURING SHIFT. NEEDS MET; WILL CONTINUE TO MONITOR.
--- NOTE | 2020-03-22 09:10 | NUR ---
AM MEDS GIVEN AT THIS TIME. ALSO GAVE 4MG OF MORPHINE FOR PAIN LEVEL OF 7/10. PT UP TO SIDE OF BED, DENIES ANY NEEDS AT THIS TIME. CALL LIGHT IN REACH,N AD NOTED, WILL CONTINUE TO MONITOR.
[2020-03-22 09:44] VITALS: BP 176/84
--- NOTE | 2020-03-22 11:45 | MORECARE ---
CASE MANAGEMENT DISCHARGE SUMMARY PATIENT: JENNIFER TREJO UNIT: [id number] ADM DATE: 03/18/20 AGE: 64 : 57 SEX: M ROOM/BED: D.3350 AUTHOR: STEPHANY,DOC PHYSICIAN: REFERRING PHYSICIAN: VITOR AGGARWAL DO DATE OF SERVICE: 03/22/20 Discharge Plan Patient Name: JENNIFER TREJO Facility: [facility]:[place] : 1955 Planned Disposition: Anticipated Discharge Date: Discharge Date: Expected LOS: Initial Reviewer: [email or web address] Initial Review Date: 03/18/2020 Generated: 03/22/20 12:44 pm Comments DCP- Discharge Planning Updated by [email or web address]: Kayli Barnes on 03/22/20 10:[address] CM received an order for Trilogy. CM faxed records to [facility] and contacted Jon. CM will continue to follow and assist as needed with discharge planning needs. DCP- Discharge Planning Updated by [id number]: Kierra Parrish on 03/20/20 7:[address] Patient Name: JENNIFER TREJO Admission Status: ER Accout number: [id number] Admission Date: 03-18-2020 : 1955 Admission Diagnosis:CHRONIC OBSTRUCTIVE PULMONARY DISEASE W (ACUTE) EXACERB Attending: VITOR AGGARWAL Current LOS: 2 Anticipated DC Date: Planned Disposition: Primary Insurance: MEDICAID [place] Discharge Planning Comments: CM met with patient to complete initial dc planning assessment. CM educated patient on the CM role and verbal consent given by patient to complete assessment. CM verified patient's address, phone number, and emergency contact phone numbers. Patient lives at home and is independent. At discharge patient plans to return home and feels this is a safe discharge. Cm met with patient to discuss frequent admissions, and what can be done to assist patient with his disease process. Patient states he is unable to obtain his medications because lack of spots with his RICHARD, and he is unsure of what to take. CM provided alternatives as to which medications to put on RICHARD, and provided pt with [facility] 4 dollar list, and a good RX card. CM will assist patient into obtaining more RICHARD spots if available. Pt states he could use help at home with his medication management. [facility] signed for [facility]. Patient denies other known discharge needs at this time. Transportation provider at discharge will be himself. CM will continue to follow and will assist as needed with dc plans/needs. Cco: Kierra Parrish MSN,RN,CM DCPIA - Discharge Planning Initial Assessment Updated by [email or web address]: Kierra Parrish on 03/20/20 8:38 pm * Is the patient Alert and Oriented? Yes * How many steps to enter\exit or inside your home? 0/0 * PCP Trisha Robbins * [facility] * Preadmission Environment Home Alone * ADLs Independent * Equipment Nebulizer Oxygen * List name and contact numbers for known caregivers / representatives who currently or will assist patient after discharge: Daughter Angela Knowles [phone] * Verbal permission to speak to the caregivers and representatives has been obtained from the patient. Yes * Community resources currently utilized Other * Please name any agencies selected above. oxygen from [facility] * Additional services required to return to the preadmission environment? Yes * Can the patient safely return to the preadmission environment? No * Has this patient been hospitalized within the prior 30 days at any hospital? Yes External Providers External Provider: Marybeth Next Contact Date: Service Request Date: Service Type: Resolution: Reviewer: Comments: Last DP export: 03/20/20 7:42 p Patient Name: JENNIFER TREJO Page [phone] at 1145 All edits/amendments must be made on the electronic document DICTATION DATE: 03/22/20 1145 HOT DOG VENDOR: MARVIN 03/22/20 1145 RPT#: [id number] DC DATE: STATUS: ADM IN [facility] [address] [place] [address] END OF REPORT
--- NOTE | 2020-03-22 11:52 | MORECARE ---
CASE MANAGEMENT DISCHARGE SUMMARY PATIENT: JENNIFER TREJO UNIT: [id number] ADM DATE: 03/18/20 AGE: 64 : 57 SEX: M ROOM/BED: D.7937 AUTHOR: STEPHANY,DOC PHYSICIAN: REFERRING PHYSICIAN: VITOR AGGARWAL DO DATE OF SERVICE: 03/22/20 Discharge Plan Patient Name: JENNIFER TREJO Facility: [facility]:[place] : 1955 Planned Disposition: Anticipated Discharge Date: Discharge Date: Expected LOS: Initial Reviewer: [email or web address] Initial Review Date: 03/18/2020 Generated: 03/22/20 12:52 pm Comments DCP- Discharge Planning Updated by [email or web address]: Kayli Barnes on 03/22/20 10:[address] CM received an order for Trilogy. CM faxed records to [facility] and contacted Jon. CM will continue to follow and assist as needed with discharge planning needs. DCP- Discharge Planning Updated by [id number]: Kierra Parrish on 03/20/20 7:[address] Patient Name: JENNIFER TREJO Admission Status: ER Accout number: [id number] Admission Date: 03-18-2020 : 1955 Admission Diagnosis:CHRONIC OBSTRUCTIVE PULMONARY DISEASE W (ACUTE) EXACERB Attending: VITOR AGGARWAL Current LOS: 2 Anticipated DC Date: Planned Disposition: Primary Insurance: MEDICAID [place] Discharge Planning Comments: CM met with patient to complete initial dc planning assessment. CM educated patient on the CM role and verbal consent given by patient to complete assessment. CM verified patient's address, phone number, and emergency contact phone numbers. Patient lives at home and is independent. At discharge patient plans to return home and feels this is a safe discharge. Cm met with patient to discuss frequent admissions, and what can be done to assist patient with his disease process. Patient states he is unable to obtain his medications because lack of spots with his RICHARD, and he is unsure of what to take. CM provided alternatives as to which medications to put on RICHARD, and provided pt with [facility] 4 dollar list, and a good RX card. CM will assist patient into obtaining more RICHARD spots if available. Pt states he could use help at home with his medication management. [facility] signed for [facility]. Patient denies other known discharge needs at this time. Transportation provider at discharge will be himself. CM will continue to follow and will assist as needed with dc plans/needs. Supervisor Scrap Preparation: Kierra Parrish MSN,RN,CM DCPIA - Discharge Planning Initial Assessment Updated by [email or web address]: Kierra Parrish on 03/20/20 8:38 pm * Is the patient Alert and Oriented? Yes * How many steps to enter\exit or inside your home? 0/0 * PCP Trisha Robbins * [facility] * Preadmission Environment Home Alone * ADLs Independent * Equipment Nebulizer Oxygen * List name and contact numbers for known caregivers / representatives who currently or will assist patient after discharge: Daughter Angela Knowles [phone] * Verbal permission to speak to the caregivers and representatives has been obtained from the patient. Yes * Community resources currently utilized Other * Please name any agencies selected above. oxygen from [facility] * Additional services required to return to the preadmission environment? Yes * Can the patient safely return to the preadmission environment? No * Has this patient been hospitalized within the prior 30 days at any hospital? Yes Last DP export: 03/22/20 10:45 a Patient Name: JENNIFER TREJO Page [phone] at 1152 All edits/amendments must be made on the electronic document DICTATION DATE: 03/22/20 1152 HEAD GIRLS GOLF COACH: MARVIN 03/22/20 1152 RPT#: [id number] DC DATE: STATUS: ADM IN [facility] [address] [place] [address] END OF REPORT
[2020-03-22 13:38] VITALS: BP 183/67
[2020-03-22 17:45] VITALS: BP 174/85
--- NOTE | 2020-03-22 18:22 | NUR ---
IVPB DOXY HUNG AT THIS TIME. ALSO GAVE 4MG OF MOPRHINE FOR PAIN LEVEL OF 7/10.PT DENIES ANY OTHER NEEDS AT THIS TIME. CALL LIGHT IN REACH.
--- NOTE | 2020-03-22 19:53 | NUR ---
INITIAL ROUNDS COMPLETED AT 1910 HRS. PT RESTING WITH EYES CLOSED. RESP EVEN AND REGULAR. ASSESSMENT COMPLETED AT 194 HRS. VSS. ALERT AND ORIENTED TO PERSON,PLACE AND TIME. ARROYO. IV TO RFA WITH IVAB INFUSING. O2 2LNC. LUNGS DIMINISHED IN BASES BILAT. Palpable peripheral pulses. PT STATES PAIN LEVEL NOW 6/10. CALL LIGHT WITHIN REACH.
[2020-03-22 20:00] VITALS: BP 133/65
--- NOTE | 2020-03-22 21:29 | NUR ---
PM MEDS GIVEN. ICE CREM GIVEN PER REQUEST. PT WATCHING TV. NO DISTRESS NOTED.
--- NOTE | 2020-03-22 23:58 | NUR ---
PT RESTING WITH EYES CLOSED. RESP EVEN AND REGULAR. CALL LIGHT WITHIN REACH.
[2020-03-23] VITALS: BP 161/68
--- NOTE | 2020-03-23 01:40 | NUR ---
PT RESTING WITH EYES CLOSED. RESP EVEN AND REGULAR. O2 2LNC. CALL LIGHT WITHIN REACH.
[2020-03-23 04:00] VITALS: BP 128/56
--- NOTE | 2020-03-23 04:24 | NUR ---
PT RESTING WITH EYES CLOSED. RESP EVEN AND REGULAR. BIPAP IN USE. CALL LIGHT WITHIN REACH.
[2020-03-23 05:55] LABS: BASOPHILS 0 % (0-2); EOSINOPHILS 0.2 % (0-7); HEMATOCRIT 34.6 % (42.0-54.0); HEMOGLOBIN 10.8 g/dL (13.5-17.5); IMMATURE GRANULOCYTES 0.9 % (0-5); LYMPHOCYTES 5.7 % (15-50); MCH 30.9 pg (26.0-34.0); MCHC 31.2 g/dL (31.0-37.0); MCV 98.9 fL (80.0-100.0); MEAN PLATELET VOLUME 9.5 fL (7.4-10.4); MONOCYTES 6.1 % (2-11); NEUTROPHILS 87.1 % (40-80); PLATELET COUNT 173 10x3/uL (130-400); RDW 13.3 % (11.5-14.5); WBC 11.2 10x3/uL (4.8-10.8)
[2020-03-23 06:01] LABS: CALC OSMOLALITY 280 mosm/kg (275-300); CALCIUM 8.7 mg/dL (8.5-10.1); CARBON DIOXIDE 37.6 mmol/L (21.0-32.0); CHLORIDE - SERUM 102 mmol/L (98-107); CREATININE - SERUM 0.9 mg/dL (0.6-1.3); GLUCOSE 140 mg/dL (74-106); POTASSIUM - SERUM 4.5 mmol/L (3.5-5.1); SODIUM 137 mmol/L (136-145); UREA NITROGEN 27 mg/dL (7-18); eGFR NON AFRICAN AMERICAN 90 mL/min (90-120)
--- NOTE | 2020-03-23 06:23 | NUR ---
VSS THROUGHOUT NIGHT. PT STATED MORPHNE HELPED CONTROL HIS CHRONIC CP. NEEDS MET; WILL CONTINUE TO MONITOR.
--- NOTE | 2020-03-23 08:44 | NUR ---
AM MEDS GIVEN AT THIS TIME. ALSO GAVE 4MG OF MORPHINE FOR PAIN LEVEL OF 7/10. PT UP TO CHAIR, DENIES ANY NEEDS AT THIS TIME. CALL LIGHT IN REACH, NAD NOTED, WILL CONTINUE TO MONITOR.
[2020-03-23 09:22] VITALS: BP 173/69
--- NOTE | 2020-03-23 10:34 | MORECARE ---
CASE MANAGEMENT DISCHARGE SUMMARY PATIENT: JENNIFER TREJO UNIT: [id number] ADM DATE: 03/18/20 AGE: 65 : 57 SEX: M ROOM/BED: D.9544 AUTHOR: STEPHANYDOC PHYSICIAN: REFERRING PHYSICIAN: VITOR AGGARWAL DO DATE OF SERVICE: 03/23/20 Discharge Plan Patient Name: JENNIFER TREJO Facility: [facility]:[place] : 1955 Planned Disposition: Anticipated Discharge Date: Discharge Date: Expected LOS: Initial Reviewer: [email or web address] Initial Review Date: 03/18/2020 Generated: 03/23/20 11:33 am Comments DCP- Discharge Planning Updated by [id number]: Kayli Barnes on 03/22/20 10:[address] CM received an order for Trilogy. CM faxed records to [facility] and contacted Jon. CM will continue to follow and assist as needed with discharge planning needs. DCP- Discharge Planning Updated by [id number]: Kierra Parrish on 03/20/20 7:[address] Patient Name: JENNIFER TREJO Admission Status: ER Accout number: [id number] Admission Date: 03-18-2020 : 1955 Admission Diagnosis:CHRONIC OBSTRUCTIVE PULMONARY DISEASE W (ACUTE) EXACERB Attending: VITOR AGGARWAL Current LOS: 2 Anticipated DC Date: Planned Disposition: Primary Insurance: MEDICAID [place] Discharge Planning Comments: CM met with patient to complete initial dc planning assessment. CM educated patient on the CM role and verbal consent given by patient to complete assessment. CM verified patient's address, phone number, and emergency contact phone numbers. Patient lives at home and is independent. At discharge patient plans to return home and feels this is a safe discharge. Cm met with patient to discuss frequent admissions, and what can be done to assist patient with his disease process. Patient states he is unable to obtain his medications because lack of spots with his RICHARD, and he is unsure of what to take. CM provided alternatives as to which medications to put on RICHARD, and provided pt with [facility] 4 dollar list, and a good RX card. CM will assist patient into obtaining more RICHARD spots if available. Pt states he could use help at home with his medication management. [facility] signed for [facility]. Patient denies other known discharge needs at this time. Transportation provider at discharge will be himself. CM will continue to follow and will assist as needed with dc plans/needs. Night Supervisor: Kierra Parrish MSN,RN,CM DCPIA - Discharge Planning Initial Assessment Updated by [email or web address]: Kierra Parrish on 03/20/20 8:38 pm * Is the patient Alert and Oriented? Yes * How many steps to enter\exit or inside your home? 0/0 * PCP Trisha Robbins * [facility] * Preadmission Environment Home Alone * ADLs Independent * Equipment Nebulizer Oxygen * List name and contact numbers for known caregivers / representatives who currently or will assist patient after discharge: Daughter Angela Knowles [phone] * Verbal permission to speak to the caregivers and representatives has been obtained from the patient. Yes * Community resources currently utilized Other * Please name any agencies selected above. oxygen from [facility] * Additional services required to return to the preadmission environment? Yes * Can the patient safely return to the preadmission environment? No * Has this patient been hospitalized within the prior 30 days at any hospital? Yes External Providers External Provider: [facility] Next Contact Date: Service Request Date: Service Type: Resolution: Reviewer: Comments: Last DP export: 03/22/20 10:52 a Patient Name: JENNIFER TREJO Page [phone] at 1034 All edits/amendments must be made on the electronic document DICTATION DATE: 03/23/20 1033 PARKING ENFORCEMENT TECHNICIAN: MARVIN 03/23/20 1033 RPT#: [id number] DC DATE: STATUS: ADM IN [facility] [address] [place] [address] END OF REPORT
[2020-03-23 13:56] VITALS: BP 146/67
--- NOTE | 2020-03-23 14:11 | NUR ---
Nutrition Follow-up: Eating well. Pt states that we don't always send enough food; pt is already receiving extra portions of protein and non-starchy vegetables. Noted Ensure on BS table; pt reports he drank 3 yesterday. Diet: Cardiac, extra portions of protein and non-starchy vegetables PO intake: 75-100% Wt: 176# (03/23); 179.6# (03/21) Last BM: 03/23 Labs noted: Glu 140 Meds noted: Miralax, Solumedrol, electrolyte protocol -[place] food preferences within diet restrictions. -Monitor wt; noted daily wts ordered. -RD following.
--- NOTE | 2020-03-23 14:44 | NUR ---
PT'S NIECES NUMBER HALI [phone], SHE WILL BE PICKING PT UP AFTER DISCHARGE.
--- NOTE | 2020-03-23 16:56 | NUR ---
4MG OF MORPHINE GIVEN FOR PAIN LEVEL OF 7/10. ALSO COUGH MEDICATIONS. PT DENIES ANY OTHER NEEDS AT THIS TIME, CALL LIGHT IN REACH, NAD NOTED, WILL CONTINUE TO MONITOR.
[2020-03-23 18:54] VITALS: BP 156/71
[2020-03-23 21:45] VITALS: BP 167/84
[2020-03-24 00:06] VITALS: BP 144/82
[2020-03-24 04:11] VITALS: BP 144/68
[2020-03-24 06:34] LABS: BASOPHILS 0.1 % (0-2); EOSINOPHILS 0 % (0-7); HEMATOCRIT 35.1 % (42.0-54.0); HEMOGLOBIN 10.9 g/dL (13.5-17.5); IMMATURE GRANULOCYTES 1.1 % (0-5); MCH 30.2 pg (26.0-34.0); MCHC 31.1 g/dL (31.0-37.0); MCV 97.2 fL (80.0-100.0); MEAN PLATELET VOLUME 9.1 fL (7.4-10.4); MONOCYTES 5.3 % (2-11); NEUTROPHILS 86.5 % (40-80); PLATELET COUNT 174 10x3/uL (130-400); RBC 3.61 10x6/uL (4.20-6.10); RDW 13.2 % (11.5-14.5); WBC 10.1 10x3/uL (4.8-10.8)
[2020-03-24 06:50] LABS: CALC OSMOLALITY 284 mosm/kg (275-300); CALCIUM 8.5 mg/dL (8.5-10.1); CARBON DIOXIDE 34.4 mmol/L (21.0-32.0); CHLORIDE - SERUM 103 mmol/L (98-107); GLUCOSE 158 mg/dL (74-106); POTASSIUM - SERUM 4.3 mmol/L (3.5-5.1); SODIUM 139 mmol/L (136-145); UREA NITROGEN 25 mg/dL (7-18); eGFR NON AFRICAN AMERICAN 80 mL/min (90-120)
[2020-03-24 08:09] VITALS: BP 153/80
[2020-03-24 12:00] VITALS: BP 140/58
--- NOTE | 2020-03-24 12:34 | NUR ---
RECIEVED VERBAL ORDERS PER TO DC MORPHINE AND ORDER NORCO 10 PO [id number] NEEDED FOR MODERATE PAIN. ORDER PLACED. WILL CTM.
[2020-03-24] MEDS ORDERED: NORVASC10 MG PO (13:25)
[2020-03-24] MEDS ORDERED: MUCINEX DM ER1 EAC1 PO (13:26)
[2020-03-24] MEDS ORDERED: SINGULAIR10 MG PO (13:26)
[2020-03-24] MEDS ORDERED: DALIRESP250 MCG PO (13:26)
[2020-03-24] MEDS ORDERED: PREDNISONE10 MG PO (13:27)
[2020-03-24] MEDS ORDERED: VIBRAMYCIN 100100 MG PO (13:28)
--- NOTE | 2020-03-24 15:41 | NUR ---
PT DISCHARGED HOME VIA WHEELCHAIR WITH FAMILY. PT SIGNED PROPER DISCHARGE INSTRUCTIONS AND REMOVED ALL VALUABLES FROM THE ROOM. TELEMTRY REMOVED AND RETURNED.
--- NOTE | 2020-03-26 18:04 | MORECARE ---
CASE MANAGEMENT DISCHARGE SUMMARY PATIENT: JENNIFER TREJO UNIT: [id number] ADM DATE: 03/18/20 AGE: 65 : 57 SEX: M ROOM/BED: D.1141 AUTHOR: STEPHANY,DOC PHYSICIAN: REFERRING PHYSICIAN: VITOR AGGARWAL DO DATE OF SERVICE: 03/26/20 Discharge Plan Patient Name: JENNIFER RTEJO Facility: [facility]:[place] : 1955 Planned Disposition: Anticipated Discharge Date: Discharge Date: 03/24/2020 Expected LOS: Initial Reviewer: [email or web address] Initial Review Date: 03/18/2020 Generated: 03/26/20 7:04 pm DCP- Discharge Planning Updated by [email or web address]: Kayli Barnes on 03/22/20 10:[address] CM received an order for Trilogy. CM faxed records to [facility] and contacted Jon. CM will continue to follow and assist as needed with discharge planning needs. DCP- Discharge Planning Updated by [id number]: Kierra Parrish on 03/20/20 7:[address] Patient Name: JENNIFER TREJO Admission Status: ER Accout number: [id number] Admission Date: 03-18-2020 : 1955 Admission Diagnosis:CHRONIC OBSTRUCTIVE PULMONARY DISEASE W (ACUTE) EXACERB Attending: VITOR AGGARWAL Current LOS: 2 Anticipated DC Date: Planned Disposition: Primary Insurance: MEDICAID [place] Discharge Planning Comments: CM met with patient to complete initial dc planning assessment. CM educated patient on the CM role and verbal consent given by patient to complete assessment. CM verified patient's address, phone number, and emergency contact phone numbers. Patient lives at home and is independent. At discharge patient plans to return home and feels this is a safe discharge. Cm met with patient to discuss frequent admissions, and what can be done to assist patient with his disease process. Patient states he is unable to obtain his medications because lack of spots with his RICHARD, and he is unsure of what to take. CM provided alternatives as to which medications to put on RICHARD, and provided pt with [facility] 4 dollar list, and a good RX card. CM will assist patient into obtaining more RICHARD spots if available. Pt states he could use help at home with his medication management. [facility] signed [facility]. Patient denies other known discharge needs at this time. Transportation provider at discharge will be himself. CM will continue to follow and will assist as needed with dc plans/needs. Group Therapy Counselor: Kierra Parrish MSN,RN,CM DCPIA - Discharge Planning Initial Assessment Updated by [email or web address]: Kierra Parrish on 03/20/20 8:38 pm * Is the patient Alert and Oriented? Yes * How many steps to enter\exit or inside your home? 0/0 * PCP Trisha Robbins * [facility] * Preadmission Environment Home Alone * ADLs Independent * Equipment Nebulizer Oxygen * List name and contact numbers for known caregivers / representatives who currently or will assist patient after discharge: Daughter Angela Knowles [phone] * Verbal permission to speak to the caregivers and representatives has been obtained from the patient. Yes * Community resources currently utilized Other * Please name any agencies selected above. oxygen from [facility] * Additional services required to return to the preadmission environment? Yes * Can the patient safely return to the preadmission environment? No * Has this patient been hospitalized within the prior 30 days at any hospital? Yes Last DP export: 03/23/20 9:34 a Patient Name: JENNIFER TREJO Page [phone] at 1804 All edits/amendments must be made on the electronic document DICTATION DATE: 03/26/201803 FREIGHT COORDINATOR: MARVIN 03/26/201803 RPT#: [id number] DC DATE:03/24/20 STATUS: DIS IN [facility] [address] [place] [address] END OF REPORT
== END 2020-03-24 15:42 | disposition home or self-care (01) | DRG 189 ==
LOC: D.ER 16:24 → D.M2 19:13
PROVIDERS: Family Medicine; ADMIT Family Medicine; ATTEND Family Medicine
DX: J96.21 Acute and chronic respiratory failure with hypoxia (principal); J44.1 Chronic obstructive pulmonary disease with (acute) exacerbation; F17.213 Nicotine dependence, cigarettes, with withdrawal; D64.9 Anemia, unspecified; I10 Essential (primary) hypertension; I25.10 Atherosclerotic heart disease of native coronary artery without angina pectoris; I45.10 Unspecified right bundle-branch block; K21.9 Gastro-esophageal reflux disease without esophagitis; E78.5 Hyperlipidemia, unspecified; R07.9 Chest pain, unspecified; S22.31XD Fracture of one rib, right side, subsequent encounter for fracture with routine healing